=== PATIENT | male | born 1935 | race Caucasian/White ===

== ENCOUNTER → 2017-03-11 | Outpatient (CLI) | payer MEDICARE ==
[2017-03-11 09:34] LABS: ABSOLUTE EOSINOPHILS # (AUTO) 0.4 10^3/uL (0.0-0.6); ABSOLUTE LYMPHOCYTES (AUTO) 1.4 10^3/uL (0.5-4.7); ABSOLUTE MONOCYTES (AUTO) 0.9 10^3/uL (0.1-1.4); ABSOLUTE NEUT (AUTO) 4.2 10^3/uL (1.7-8.2); BASOPHILS % (AUTO) 0.6 % (0-2); EOSINOPHILS % (AUTO) 5.5 % (0-6); HEMATOCRIT 37.9 % (37.9-51.0); HEMOGLOBIN 12.7 g/dL (13.5-17.0); HGB HCT DIFFERENCE 0.2; LYMPHOCYTES % (AUTO) 20.6 % (13-45); MEAN CORPUSCULAR HEMOGLOBIN 32.5 pg (27.0-33.4); MEAN CORPUSCULAR HGB CONC 33.6 g/dL (32.0-36.0); MEAN CORPUSCULAR VOLUME 97 fl (80-97); RED BLOOD COUNT 3.92 10^6/uL (4.35-5.55); RED CELL DISTRIBUTION WIDTH 14.7 % (11.5-14.0); SEGMENTED NEUTROPHILS % (AUTO) 60.3 % (42-78)
[2017-03-11 09:54] LABS: ALANINE AMINOTRANSFERASE 35 U/L (21-72); ALBUMIN 4.3 g/dL (3.5-5.0); ALKALINE PHOSPHATASE 80 U/L (38-126); ANION GAP 11 (5-19); ASPARTATE AMINO TRANSFERASE 30 U/L (17-59); BILIRUBIN,DIRECT 0.3 mg/dL (0.0-0.4); BILIRUBIN,TOTAL 0.6 mg/dL (0.2-1.3); BLOOD UREA NITROGEN 19 mg/dL (7-20); CALCIUM 9.6 mg/dL (8.4-10.2); CARBON DIOXIDE 28 mmol/L (22-30); CHLORIDE 103 mmol/L (98-107); CHOLESTEROL 221.77 mg/dL (0-200); CREATININE RESULT 1.08 mg/dL (0.52-1.25); Direct HDL 88 mg/dL (>40); GLUCOSE 85 mg/dL (75-110); POTASSIUM 4.7 mmol/L (3.6-5.0); SODIUM 141.6 mmol/L (137-145); TOTAL PROTEIN 7.8 g/dL (6.3-8.2); TRIGLYCERIDES 55 mg/dL (<150)
[2017-03-11 10:05] LABS: DIRECT LDL 110 mg/dL (<100)
== END ==
LOC: OD 08:14
PROVIDERS: ATTEND Pediatrics
DX: E78.2 Mixed hyperlipidemia (principal)
CPT/HCPCS: 36415; 80053; 80061; 85025

== ENCOUNTER 2017-09-24 04:24 | Inpatient (IN) | payer MEDICARE, BC ==
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
[2017-09-24 05:32] LABS: ABSOLUTE EOSINOPHILS # (AUTO) 0.3 10^3/uL (0.0-0.6); ABSOLUTE MONOCYTES (AUTO) 1.1 10^3/uL (0.1-1.4); ABSOLUTE NEUT (AUTO) 4.9 10^3/uL (1.7-8.2); BASOPHILS % (AUTO) 0.6 % (0-2); EOSINOPHILS % (AUTO) 4.7 % (0-6); HEMOGLOBIN 9.4 g/dL (13.5-17.0); LYMPHOCYTES % (AUTO) 13.8 % (13-45); MEAN CORPUSCULAR HGB CONC 33.6 g/dL (32.0-36.0); MEAN CORPUSCULAR VOLUME 95 fl (80-97); MONOCYTES % (AUTO) 14.3 % (3-13); PLATELET COUNT 195 10^3/uL (150-450); RED BLOOD COUNT 2.95 10^6/uL (4.35-5.55); RED CELL DISTRIBUTION WIDTH 14.3 % (11.5-14.0); SEGMENTED NEUTROPHILS % (AUTO) 66.6 % (42-78); TOTAL CELLS COUNTED % (AUTO) 100 %; WHITE BLOOD COUNT 7.4 10^3/uL (4.0-10.5)
[2017-09-24 07:22] LABS: ALANINE AMINOTRANSFERASE 33 U/L (21-72); ALBUMIN 3.3 g/dL (3.5-5.0); ALKALINE PHOSPHATASE 75 U/L (38-126); ANION GAP 11 (5-19); ASPARTATE AMINO TRANSFERASE 32 U/L (17-59); BILIRUBIN,DIRECT 0.2 mg/dL (0.0-0.4); BILIRUBIN,TOTAL 0.6 mg/dL (0.2-1.3); BLOOD UREA NITROGEN 20 mg/dL (7-20); CALCIUM 8.9 mg/dL (8.4-10.2); CARBON DIOXIDE 28 mmol/L (22-30); CHLORIDE 98 mmol/L (98-107); GLUCOSE 98 mg/dL (75-110); POTASSIUM 4.5 mmol/L (3.6-5.0); SODIUM 136.6 mmol/L (137-145); TOTAL PROTEIN 6.4 g/dL (6.3-8.2)
--- NOTE | 2017-09-24 07:40 | EKG REPORT ---
SEVERITY:- NORMAL ECG - SINUS RHYTHM : Confirmed by: Robel Bennett MD 24-Sep-2017 07:39:12
[2017-09-24] MEDS ORDERED: TRAMADOL HCL 50 MG TABLET PO ONE (07:48)
--- NOTE | 2017-09-24 08:39 | ER Document Report ---
ED General - General Chief Complaint: Dizziness Stated Complaint: FALL/MULTIPLE INJURIES Time Seen by Provider: 09/24/17 04:54 Mode of Arrival: Stretcher Information source: Patient, Relative, Outside Facility Records Notes: 82-year-old male who fell one week ago and has bilateral humeral fractures in slings presents with complaints of swelling in his lower extremities generalized weakness. Patient flew here from [place] yesterday, is supposed to see Dr. Jordan for surgical intervention tomorrow. Patient notes pain is controlled with tramadol TRAVEL OUTSIDE OF THE [place] IN LAST 30 DAYS: No - HPI Onset: Last week Onset/Duration: Persistent Quality of pain: Achy Severity: Mild Pain Level: 1 Associated symptoms: Body/muscle aches Exacerbated by: Movement Relieved by: Denies Similar symptoms previously: Yes Recently seen / treated by doctor: Yes - Related Data Allergies/Adverse Reactions: Sulfa (Sulfonamide Antibiotics) Allergy (Verified 09/24/17 06:35) Past Medical History - Social History Smoking Status: Never Smoker Cigarette use (# per day): No Chew tobacco use (# tins/day): No Smoking Education Provided: No Family History: Reviewed & Not Pertinent Patient has suicidal ideation: No Patient has homicidal ideation: No - Past Medical History Cardiac Medical History: Reports: Hx Hypertension Renal/ Medical History: Denies: Hx Peritoneal Dialysis Review of Systems - Review of Systems Notes: REVIEW OF SYSTEMS: CONSTITUTIONAL : Denies fever, chills, or sweats. Denies recent illness. EENT: Denies eye, ear, throat, or mouth pain or symptoms. Denies nasal or sinus congestion or discharge. Denies throat, tongue, or mouth swelling or difficulty swallowing. CARDIOVASCULAR: Denies chest pain. Denies palpitations or racing or irregular heart beat. Denies ankle edema. RESPIRATORY: Denies cough, cold, or chest congestion. Denies shortness of breath, difficulty breathing, or wheezing. GASTROINTESTINAL: Denies abdominal pain or distention. Denies nausea, vomiting , or diarrhea. Denies blood in vomitus, stools, or per rectum. Denies black, tarry stools. Denies constipation. GENITOURINARY: Denies difficulty urinating, painful urination, burning, frequency, blood in urine, or discharge. MUSCULOSKELETAL: Bilateral upper extremity pain SKIN: Denies rash, lesions or sores. HEMATOLOGIC : Denies easy bruising or bleeding. LYMPHATIC: Denies swollen, enlarged glands. NEUROLOGICAL: Denies confusion or altered mental status. Denies passing out or loss of consciousness. Denies dizziness or lightheadedness. Denies headache. Denies weakness or paralysis or loss of use of either side. Denies problems with gait or speech. Denies sensory loss, numbness, or tingling. Denies seizures. PSYCHIATRIC: Denies anxiety or stress. Denies depression, suicidal ideation, or homicidal ideation. ALL OTHER SYSTEMS REVIEWED AND NEGATIVE. Dictation was performed using [employer] voice recognition software PHYSICAL EXAMINATION: GENERAL: Well-appearing, well-nourished and in no acute distress. HEAD: Atraumatic, normocephalic. EYES: Pupils equal round and reactive to light, extraocular movements intact, sclera anicteric, conjunctiva are normal. ENT: Nares patent, oropharynx clear without exudates. Moist mucous membranes. NECK: Normal range of motion, supple without lymphadenopathy LUNGS: Breath sounds clear to auscultation bilaterally and equal. No wheezes rales or rhonchi. HEART: Regular rate and rhythm without murmurs ABDOMEN: Soft, nontender, nondistended abdomen. No guarding, no rebound. No masses appreciated. Musculoskeletal: Bilateral upper extremities are in slings NEUROLOGICAL: Cranial nerves grossly intact. Normal speech, normal gait. Normal sensory, motor exams PSYCH: Normal mood, normal affect. SKIN: Warm, Dry, normal turgor, no rashes or lesions noted. Physical Exam - Vital signs Vitals: Temp Pulse Resp BP Pulse Ox 97.9 F 64 22 H 213/119 H 100 09/24/17 04:30 09/24/17 04:30 09/24/17 04:30 09/24/17 04:30 09/24/17 04:30 Course - Re-evaluation Re-evalutation: 09/24/17 14:42 Patient is able to move his hands has good sensation, his CT findings are consistent with bilateral comminuted humeral fractures, I did speak with on- call orthopedic surgeon and he is willing to take the patient to the operating room, I will admit the patient to the hospitalist service for pain management and further physical therapy and care - Vital Signs Vital signs: Temp Pulse Resp BP Pulse Ox 97.9 F 77 16 161/75 H 100 09/24/17 04:30 09/24/17 10:37 09/24/17 10:37 09/24/17 07:01 09/24/17 10:37 - Laboratory Result Diagrams: 09/24/17 05:19 09/24/17 06:47 Laboratory results interpreted by me: 09/24/17 09/24/17 05:19 06:47 RBC 2.95 L Hgb 9.4 L Hct 28.0 L RDW 14.3 H Monocytes % 14.3 H Sodium 136.6 L Albumin 3.3 L - Diagnostic Test Radiology reviewed: Image reviewed - Outside facility imaging reviewed notes bilateral comminuted humeral fractures, Reports reviewed Discharge - Discharge Clinical Impression: Bilateral humeral fractures Qualifiers: Encounter type: initial encounter Fracture type: closed Qualified Code(s): S42.301A - Unspecified fracture of shaft of humerus, right arm, initial encounter for closed fracture; S42.302A - Unspecified fracture of shaft of humerus, left arm, initial encounter for closed fracture; S42.302A - Unspecified fracture of shaft of humerus, left arm, initial encounter for closed fracture HTN (hypertension) Qualifiers: Hypertension type: essential hypertension Qualified Code(s): I10 - Essential ( primary) hypertension Condition: Stable Disposition: ADMITTED INPATIENT Admitting Provider: Hospitalist Unit Admitted: Medical Floor
[2017-09-24] MEDS ORDERED: MORPHINE SULFATE 10 MG/ML INJ IV ONE (09:51)
[2017-09-24] MEDS ORDERED: TEMAZEPAM 7.5 MG CAPSULE PO PRN (10:24)
[2017-09-24] MEDS ORDERED: ACETAMINOPHEN 325 MG TABLET PO PRN (10:24)
[2017-09-24] MEDS ORDERED: ALBUTEROL SULFATE 0.083% NEB 2.5 MG/3 ML AMPUL NEB PRN (10:24)
[2017-09-24] MEDS ORDERED: ONDANSETRON 4 MG TAB.RAPDIS PO PRN (10:24)
[2017-09-24] MEDS ORDERED: ONDANSETRON HCL INJ/PF 4 MG/2 ML SDV IV PRN (10:24)
--- NOTE | 2017-09-24 10:55 | PDOC H&P ---
History of Present Illness Admission Date/PCP: 09/24/17 10:29 JOSH RODAS DO Patient complains of: Swelling of legs, bilateral arm pain History of Present Illness: The patient is an 82-year-old gentleman with past medical history of hypertension. He was in [place] last week and fell while getting out of bed in a hurry and hit his head to the floor. He was taken to the ER there and CT of the head did not show intracranial hemorrhage or skull fracture. He was found to have bilateral nasal bone and anterior maxillary nasal spine fractures Cervical spine CT showed no fracture or dislocation No rib fracture seen He was found to have bilateral humerus fractures. Over the past few days he has had progressively worsening bilateral lower extremity edema and difficulty with bilateral arm and shoulder pain. He has an appointment to see Dr. Jordan on Monday managing at home with his pain and swelling. Healthcare power of interior mechanic is his daughter. He would like to be a Full code. Outpatient medications: Metoprolol XL 50 mg twice a day Amlodipine 5 mg daily Telmisartan 80 mg daily Tramadol 37.5 mg every 6 hours as needed Past Medical History Cardiac Medical History: Reports: Hypertension Social History Information Source: Patient Lives with: Family Smoking Status: Never Smoker Frequency of Alcohol Use: None Hx Recreational Drug Use: No - Advance Directive Resuscitation Status: Full Code Family History Family History: Hypertension Parental Family History Reviewed: Yes Children Family History Reviewed: Yes Sibling(s) Family History Reviewed.: Yes Medication/Allergy Home Medications: Amlodipine Besylate [Amlodipine Besylate] 5 mg PO DAILY 09/24/17 Metoprolol Succinate [Toprol Xl 50 mg Tab.sr] 50 mg PO BID 09/24/17 Telmisartan [Telmisartan] 80 mg PO DAILY 09/24/17 Allergies/Adverse Reactions: Sulfa (Sulfonamide Antibiotics) Allergy (Verified 09/24/17 06:35) Review of Systems Constitutional: ABSENT: fever(s) Eyes: ABSENT: visual disturbances Ears: ABSENT: hearing changes Nose, Mouth, and Throat: ABSENT: sore throat Cardiovascular: PRESENT: edema. ABSENT: chest pain Respiratory: ABSENT: cough Gastrointestinal: ABSENT: abdominal pain, diarrhea Genitourinary: ABSENT: dysuria Musculoskeletal: PRESENT: joint swelling Neurological: ABSENT: focal weakness Psychiatric: ABSENT: hallucinations Endocrine: ABSENT: heat intolerance Hematologic/Lymphatic: ABSENT: easy bleeding Allergic/Immunologic: ABSENT: seasonal rhinorrhea Physical Exam Vital Signs: Temp Pulse Resp BP Pulse Ox 97.9 F 80 21 H 161/75 H 100 09/24/17 04:30 09/24/17 05:00 09/24/17 07:01 09/24/17 07:01 09/24/17 07:01 General appearance: PRESENT: no acute distress Head exam: PRESENT: normocephalic Eye exam: PRESENT: PERRLA Ear exam: PRESENT: normal external ear exam Mouth exam: PRESENT: moist Teeth exam: PRESENT: poor dentation Neck exam: ABSENT: tracheal deviation Respiratory exam: PRESENT: symmetrical, unlabored. ABSENT: wheezes Cardiovascular exam: PRESENT: RRR GI/Abdominal exam: PRESENT: normal bowel sounds, soft. ABSENT: tenderness Rectal exam: PRESENT: deferred Extremities exam: PRESENT: pedal edema, other - Bilatearl arm tenderness and swelling Neurological exam: PRESENT: alert, awake, oriented to person, oriented to place , oriented to time, oriented to situation Psychiatric exam: PRESENT: appropriate affect Skin exam: ABSENT: rash Assessment & Plan - Diagnosis (1) Pedal edema Is this a current diagnosis for this admission?: Yes Plan: Check venous dopplers, BNP, Echo (2) Bilateral humeral fractures Is this a current diagnosis for this admission?: Yes Plan: management per Orthopedic service pain control (3) HTN (hypertension) Is this a current diagnosis for this admission?: Yes Plan: Monitor BP, restart outpatient meds as indicated. - Time Time Spent: Greater than 70 Minutes - Inpatient Certification Medical Necessity: Need for Surgery, Risk of Complication if Not Cared For in Hospital
[2017-09-24] MEDS ORDERED: HYDROMORPHONE HCL INJ/PF 2 MG/ML AMPULE IV PRN (10:57)
[2017-09-24 11:25] LABS: PHOSPHORUS 3.3 mg/dL (2.5-4.5)
[2017-09-24] MEDS ORDERED: ENOXAPARIN SODIUM INJ 40 MG/0.4 ML DISP.SYRIN SUBCUT ONE (11:30)
--- NOTE | 2017-09-24 11:41 | RADIOLOGY REPORT (SQ) ---
EXAM DESCRIPTION: CHEST SINGLE VIEW COMPLETED DATE/TIME: 09/24/2017 11:28 am REASON FOR STUDY: Dyspnea COMPARISON: None. NUMBER OF VIEWS: One view. TECHNIQUE: Single frontal radiographic view of the chest acquired. LIMITATIONS: None. FINDINGS: LUNGS AND PLEURA: No opacities, masses or pneumothorax. No pleural effusion. Attenuated bl ood vessels and flattened marco a-diaphragms. MEDIASTINUM AND HILAR STRUCTURES: No masses. Contour normal. HEART AND VASCULAR STRUCTURES: Heart normal in size. Normal vasculature. BONES: No acute findings. HARDWARE: None in the chest. OTHER: No other significant finding. IMPRESSION: COPD. NO ACUTE RADIOGRAPHIC FINDING IN THE CHEST. TECHNICAL DOCUMENTATION: JOB ID: [id number] [employer]- All Rights Reserved Reading location - IP/workstation name: [email or web address]
[2017-09-24] MEDS ORDERED: METOPROLOL SUCCINATE 50 MG TAB.SR.24H PO ONE (12:00)
[2017-09-24] MEDS ORDERED: AMLODIPINE BESYLATE 5 MG TABLET PO ONE ×2 (12:00→18:00)
[2017-09-24] MEDS ORDERED: DOCUSATE SODIUM 100 MG CAPSULE PO ONE (12:00)
[2017-09-24] MEDS: DOCUSATE SODIUM 100 MG CAPSULE PO SCH (16:49)
[2017-09-24] MEDS: TRAMADOL HCL 50 MG TABLET PO PRN (16:52)
--- NOTE | 2017-09-24 17:10 | XCELERA REPORT ---
[address] [address] Lower Extremity Venous Evaluation Name: ARNEL GOINS Age: 82 yrs Gender: Male : 1935 Patient Status: Inpatient Patient Location: [place] [id number] Study Date: 09/24/2017 09:58 AM Procedure: Color flow and duplex imaging bilaterally of the veins of the lower extremities as well as the Common Femoral veins. Reason For Study: leg swelling Ordering Physician: MIKE CORTES Performed By: Genesis Cope Right Sided Venous Evaluation Normal vessel filling wall to wall, compression and augmentation as well as Colour flow down to the infrageniculate veins. Left Sided Venous Evaluation Normal vessel filling wall to wall, compression and augmentation as well as Colour flow down to the infrageniculate veins. Interpretation Summary No duplex evidence of DVT or obstruction in the bilateral lower extremities. : MIKE CORTES > Bill Hatfield
[2017-09-24] MEDS: METOPROLOL SUCCINATE 50 MG TAB.SR.24H PO SCH (17:23)
[2017-09-24] MEDS: FAMOTIDINE 20 MG TABLET PO SCH (22:17)
--- NOTE | 2017-09-24 23:07 | RADIOLOGY REPORT (SQ) ---
EXAM DESCRIPTION: SHOULDER BILAT 2 OR MORE VIEWS COMPLETED DATE/TIME: 09/24/2017 8:12 pm REASON FOR STUDY: Bilateral humerus fracture COMPARISON: None. NUMBER OF VIEWS: Six views. TECHNIQUE: Internal rotation, external rotation, and Y view images acquired of the right and left sh oulders. LIMITATIONS: None. FINDINGS: RIGHT SHOULDER: MINERALIZATION: Normal. BONES: There is a comminuted, displaced, impacted fracture at the right humeral head and neck. JOINTS: No dislocation. Degenerative changes at the acromioclavicular joint. VISUALIZED LUNGS AND RIBS: No pneumothorax. No rib fracture. SOFT TISSUES: No radiopaque foreign body. LEFT SHOULDER: MINERALIZATION: Normal. BONES: There is a comminuted, displaced fracture at the left humeral head and neck. JOINTS: There is inferior subluxation of the proximal humerus. Degenerative changes at the acromiocla vicular joint. VISUALIZED LUNGS AND RIBS: No pneumothorax. No rib fracture. SOFT TISSUES: No radiopaque foreign body. IMPRESSION: 1. Comminuted, displaced, impacted fracture at the proximal right humerus. 2. Comminuted, displaced, impacted fracture of the proximal left humerus with inferior subluxation. 3. Degenerative changes at the bilateral AC joints. TECHNICAL DOCUMENTATION: JOB ID: [id number] [employer]- All Rights Reserved Reading location - IP/workstation name: [email or web address]
[2017-09-25 06:13] LABS: ABSOLUTE EOSINOPHILS # (AUTO) 0.3 10^3/uL (0.0-0.6); ABSOLUTE LYMPHOCYTES (AUTO) 0.9 10^3/uL (0.5-4.7); ABSOLUTE NEUT (AUTO) 5.9 10^3/uL (1.7-8.2); BASOPHILS % (AUTO) 0.6 % (0-2); EOSINOPHILS % (AUTO) 4.3 % (0-6); HEMATOCRIT 29.9 % (37.9-51.0); MEAN CORPUSCULAR HEMOGLOBIN 31.6 pg (27.0-33.4); MEAN CORPUSCULAR HGB CONC 33.4 g/dL (32.0-36.0); MEAN CORPUSCULAR VOLUME 95 fl (80-97); MONOCYTES % (AUTO) 12.4 % (3-13); RED BLOOD COUNT 3.16 10^6/uL (4.35-5.55); RED CELL DISTRIBUTION WIDTH 14.1 % (11.5-14.0); SEGMENTED NEUTROPHILS % (AUTO) 71.7 % (42-78); TOTAL CELLS COUNTED % (AUTO) 100 %; WHITE BLOOD COUNT 8.2 10^3/uL (4.0-10.5)
[2017-09-25 06:37] LABS: PLATELET COUNT 230 10^3/uL (150-450)
--- NOTE | 2017-09-25 06:46 | PDOC CONSULTATION ---
Consultation Consult Date: 09/25/17 Consult reason:: Bilateral humerus fractures History of Present Illness Admission Date/PCP: 09/24/17 10:29 JOSH RODAS DO History of Present Illness: ARNEL GOINS is a 82 year old male a noncontributory past medical history who fell last week and sustained bilateral shoulder injuries. He was evaluated and found to have bilateral proximal humerus fractures. He returned from [place] and presents to the emergency room for further evaluation and therapy. He had tentatively been scheduled to be seen by Dr. comer as an outpatient in the [facility] for surgery this morning. Past Medical History Cardiac Medical History: Reports: Hypertension Pulmonary Medical History: Denies: None, Asthma, Bronchitis, Chronic Obstructive Pulmonary Disease (COPD ), Intubation, Pneumonia, Respiratory Failure, Sleep Apnea, Tuberculosis, Other Endocrine Medical History: Denies: None, Diabetes Mellitus Type 1, Diabetes Mellitus Type 2, Gestational Diabetes, Hyperthyroidism, Hypothyroidism, Obesity, Other Past Surgical History Past Surgical History: Denies: None, Appendectomy, Cardiac Catheterization, Carotid Endarterectomy, Cholecystectomy, Colostomy, Coronary Artery Bypass Graft, Coronary Stent, Gastric Bypass Surgery, Herniorrhaphy, Hip Replacement, Ileostomy, Internal Defibrillator, Knee Replacement, Orthopedic Surgery, Pacemaker, Renal Transplant , Splenectomy, Thyroidectomy, Tonsillectomy, Valve Replacement, Vascular Surgery , Other Social History Information Source: Patient, Legal Guardian, [facility] Records Lives with: Family Smoking Status: Former Smoker Cigarettes Packs Per Day: 0.5 Cigars Per Day: 0 Pipes Per Day: 0 Number of Years Smokin Last Time Smoked: 05/15/1969 Frequency of Alcohol Use: None Hx Recreational Drug Use: No Hx Prescription Drug Abuse: No - Advance Directive Resuscitation Status: Full Code Family History Family History: Reviewed & Not Pertinent Parental Family History Reviewed: No Children Family History Reviewed: No Sibling(s) Family History Reviewed.: No Medication/Allergy Home Medications: Amlodipine Besylate [Amlodipine Besylate] 5 mg PO DAILY 09/24/17 Metoprolol Succinate [Toprol Xl 50 mg Tab.sr] 50 mg PO Q12 09/24/17 Telmisartan [Telmisartan] 80 mg PO DAILY 09/24/17 Allergies/Adverse Reactions: Sulfa (Sulfonamide Antibiotics) Allergy (Verified 09/24/17 06:35) Review of Systems All systems: as per PMH Physical Exam Vital Signs: Temp Pulse Resp BP Pulse Ox 36.8 C 65 17 139/76 H 100 09/24/17 23:53 09/25/17 02:00 09/24/17 23:53 09/24/17 23:53 09/24/17 23:53 Intake & Output 09/23/17 09/24/17 09/25/17 06:59 06:59 06:59 Intake Total 467 Balance 467 Weight 69.9 kg Physical Exam: The patient is a tall thin elderly white male appearing younger than his stated age. Apparently he has self-contained discontinued the use of bilateral upper extremity slings that he presented to the emergency room with. General appearance: PRESENT: no acute distress, mild distress Head exam: PRESENT: normocephalic Respiratory exam: PRESENT: unlabored Cardiovascular exam: PRESENT: RRR Pulses: PRESENT: normal radial pulses, +1 pedal pulses bilateral Vascular exam: PRESENT: normal capillary refill GI/Abdominal exam: PRESENT: soft Rectal exam: PRESENT: deferred Extremities exam: PRESENT: other - Patient has difficulty abducting and extending either upper extremity. He has tenderness to palpation over the shoulder girdle bilaterally. Skin is intact. Distal neurovascular examination is intact. Neurological exam: PRESENT: alert, awake, oriented to person, oriented to place , oriented to time, oriented to situation. ABSENT: motor sensory deficit Psychiatric exam: PRESENT: appropriate affect, normal mood. ABSENT: homicidal ideation, suicidal ideation Skin exam: PRESENT: dry, intact, warm. ABSENT: cyanosis, rash Results Laboratory Results: 09/25/17 04:39 09/25/17 04:39 WBC 8.2 RBC 3.16 L Hgb 10.0 L Hct 29.9 L MCV 95 MCH 31.6 MCHC 33.4 RDW 14.1 H Plt Count 230 Seg Neutrophils % 71.7 Lymphocytes % 11.0 L Monocytes % 12.4 Eosinophils % 4.3 Basophils % 0.6 Absolute Neutrophils 5.9 Absolute Lymphocytes 0.9 Absolute Monocytes 1.0 Absolute Eosinophils 0.3 Absolute Basophils 0.0 09/25/17 04:39 NT-Pro-B Natriuret Pep 408 Impressions: Chest X-Ray 09/24/17 00:00 IMPRESSION: COPD. NO ACUTE RADIOGRAPHIC FINDING IN THE CHEST. Shoulder X-Ray 09/24/17 00:00 IMPRESSION: 1. Comminuted, displaced, impacted fracture at the proximal right humerus. 2. Comminuted, displaced, impacted fracture of the proximal left humerus with inferior subluxation. 3. Degenerative changes at the bilateral AC joints. Status: Imported from PACS Assessment & Plan - Diagnosis (1) Bilateral humeral fractures Qualifiers: Encounter type: initial encounter Fracture type: closed Qualified Code(s) : S42.301A - Unspecified fracture of shaft of humerus, right arm, initial encounter for closed fracture; S42.302A - Unspecified fracture of shaft of humerus, left arm, initial encounter for closed fracture; S42.302A - Unspecified fracture of shaft of humerus, left arm, initial encounter for closed fracture Is this a current diagnosis for this admission?: Yes Plan: 82-year-old white male with bilateral proximal humerus fractures and the associated functional disability that comes with this. Patient is really unable to care for himself and is admitted to the hospital largely for social reasons. During the hospitalization his bilateral humerus fractures will be assessed and treated by Dr. slater. - Time Time Spent: 50 to 70 Minutes Anticipated discharge: Home with Homehealth Within: Other
[2017-09-25] MEDS ORDERED: VALSARTAN 40 MG TABLET PO SCH (08:00)
[2017-09-25] MEDS ORDERED: (PENDING PHARMACY ID) (Telmisartan [Telmisartan] 80 MG) PO SCH (08:00)
[2017-09-25] MEDS: TELMISARTAN PO SCH (08:31)
[2017-09-25 08:42] LABS: ANION GAP 11 (5-19); BLOOD UREA NITROGEN 18 mg/dL (7-20); CALCIUM 9.3 mg/dL (8.4-10.2); CARBON DIOXIDE 28 mmol/L (22-30); CHLORIDE 96 mmol/L (98-107); GLUCOSE 127 mg/dL (75-110); PHOSPHORUS 3.3 mg/dL (2.5-4.5); POTASSIUM 4.8 mmol/L (3.6-5.0); SODIUM 134.6 mmol/L (137-145)
[2017-09-25] MEDS: TRAMADOL HCL 50 MG TABLET PO PRN ×3 (09:09→22:11)
[2017-09-25] MEDS: METOPROLOL SUCCINATE 50 MG TAB.SR.24H PO SCH ×2 (09:09→20:10)
[2017-09-25] MEDS: FAMOTIDINE 20 MG TABLET PO SCH ×2 (11:37→21:28)
[2017-09-25] MEDS: DOCUSATE SODIUM 100 MG CAPSULE PO SCH ×2 (11:37→18:11)
[2017-09-25] MEDS: ENOXAPARIN SODIUM INJ 40 MG/0.4 ML DISP.SYRIN SUBCUT SCH (11:38)
--- NOTE | 2017-09-25 13:10 | PDOC PROGRESS REPORT ---
Subjective Progress Note for:: 09/25/17 Subjective:: Doing well, no complaints. Will need SNF for rehab. Reason For Visit: B/L HUMERUS FRACTURES,EDEMA Physical Exam Vital Signs: Temp Pulse Resp BP Pulse Ox 97.8 F 65 18 149/78 H 100 09/25/17 08:17 09/25/17 12:25 09/25/17 10:37 09/25/17 08:17 09/25/17 10:37 Intake & Output 09/24/17 09/25/17 09/26/17 06:59 06:59 06:59 Intake Total 467 Balance 467 Weight 69.9 kg General appearance: PRESENT: no acute distress Head exam: PRESENT: normocephalic Eye exam: ABSENT: scleral icterus Ear exam: PRESENT: normal external ear exam Mouth exam: PRESENT: moist Neck exam: ABSENT: tracheal deviation Respiratory exam: PRESENT: symmetrical, unlabored. ABSENT: crackles Cardiovascular exam: PRESENT: RRR GI/Abdominal exam: PRESENT: normal bowel sounds, soft. ABSENT: tenderness Extremities exam: PRESENT: pedal edema Neurological exam: PRESENT: alert, awake, oriented to person, oriented to place Psychiatric exam: PRESENT: appropriate affect Results Laboratory Results: 09/25/17 04:39 09/25/17 07:57 09/25/17 09/25/17 09/25/17 04:39 07:57 07:57 WBC 8.2 RBC 3.16 L Hgb 10.0 L Hct 29.9 L MCV 95 MCH 31.6 MCHC 33.4 RDW 14.1 H Plt Count 230 Seg Neutrophils % 71.7 Lymphocytes % 11.0 L Monocytes % 12.4 Eosinophils % 4.3 Basophils % 0.6 Absolute Neutrophils 5.9 Absolute Lymphocytes 0.9 Absolute Monocytes 1.0 Absolute Eosinophils 0.3 Absolute Basophils 0.0 Sodium 134.6 L Potassium 4.8 Chloride 96 L Carbon Dioxide 28 Anion Gap 11 BUN 18 Creatinine 0.80 Est GFR ( Amer) > 60 Est GFR (Non-Af Amer) > 60 Glucose 127 H Calcium 9.3 Phosphorus 3.3 Magnesium 2.1 TSH 0.86 09/25/17 04:39 NT-Pro-B Natriuret Pep 408 Impressions: Chest X-Ray 09/24/17 00:00 IMPRESSION: COPD. NO ACUTE RADIOGRAPHIC FINDING IN THE CHEST. Shoulder X-Ray 09/24/17 00:00 IMPRESSION: 1. Comminuted, displaced, impacted fracture at the proximal right humerus. 2. Comminuted, displaced, impacted fracture of the proximal left humerus with inferior subluxation. 3. Degenerative changes at the bilateral AC joints. Assessment & Plan - Diagnosis (1) Pedal edema Is this a current diagnosis for this admission?: Yes Plan: Check Echo Venous dopplers negative for DVT in the lower extremities. (2) Bilateral humeral fractures Qualifiers: Encounter type: initial encounter Fracture type: closed Qualified Code(s) : S42.301A - Unspecified fracture of shaft of humerus, right arm, initial encounter for closed fracture; S42.302A - Unspecified fracture of shaft of humerus, left arm, initial encounter for closed fracture; S42.302A - Unspecified fracture of shaft of humerus, left arm, initial encounter for closed fracture Is this a current diagnosis for this admission?: Yes Plan: management per Orthopedic service Pain control (3) HTN (hypertension) Qualifiers: Hypertension type: essential hypertension Qualified Code(s): I10 - Essential (primary) hypertension Is this a current diagnosis for this admission?: Yes Plan: Coutpatient medications. - Time Time Spent with patient: 25-34 minutes
[2017-09-25] MEDS ORDERED: ONDANSETRON HCL INJ/PF 4 MG/2 ML SDV IV PRN (15:00)
[2017-09-25] MEDS ORDERED: ONDANSETRON 4 MG TAB.RAPDIS PO PRN (15:00)
--- NOTE | 2017-09-25 15:23 | PDOC PROGRESS REPORT ---
Subjective Progress Note for:: 09/25/17 Subjective:: Patient sitting at bedside comfortable. Pain controlled but notes worse w/ motion. Denies numbness. C/o swelling Reason For Visit: B/L HUMERUS FRACTURES,EDEMA Physical Exam Vital Signs: Temp Pulse Resp BP Pulse Ox 97.3 F 65 18 154/77 H 100 09/25/17 11:51 09/25/17 12:25 09/25/17 11:51 09/25/17 11:51 09/25/17 11:51 Intake & Output 09/24/17 09/25/17 09/26/17 06:59 06:59 06:59 Intake Total 467 Balance 467 Weight 69.9 kg Musculoskeletal exam: PRESENT: other - B/L Shoulder: swelling along the UE w/ ecchymosis bilaterally. No gross deformity. intact elbow/wrist/hand ROM. No sensory deficits. Appropriate TTP Results Laboratory Results: 09/25/17 04:39 09/25/17 07:57 09/25/17 09/25/17 09/25/17 04:39 07:57 07:57 WBC 8.2 RBC 3.16 L Hgb 10.0 L Hct 29.9 L MCV 95 MCH 31.6 MCHC 33.4 RDW 14.1 H Plt Count 230 Seg Neutrophils % 71.7 Lymphocytes % 11.0 L Monocytes % 12.4 Eosinophils % 4.3 Basophils % 0.6 Absolute Neutrophils 5.9 Absolute Lymphocytes 0.9 Absolute Monocytes 1.0 Absolute Eosinophils 0.3 Absolute Basophils 0.0 Sodium 134.6 L Potassium 4.8 Chloride 96 L Carbon Dioxide 28 Anion Gap 11 BUN 18 Creatinine 0.80 Est GFR ( Amer) > 60 Est GFR (Non-Af Amer) > 60 Glucose 127 H Calcium 9.3 Phosphorus 3.3 Magnesium 2.1 TSH 0.86 09/25/17 04:39 NT-Pro-B Natriuret Pep 408 Impressions: Chest X-Ray 09/24/17 00:00 IMPRESSION: COPD. NO ACUTE RADIOGRAPHIC FINDING IN THE CHEST. Shoulder X-Ray 09/24/17 00:00 IMPRESSION: 1. Comminuted, displaced, impacted fracture at the proximal right humerus. 2. Comminuted, displaced, impacted fracture of the proximal left humerus with inferior subluxation. 3. Degenerative changes at the bilateral AC joints. Status: Image reviewed by me - Xray demonstrate bilateral 4-part comminuted proximal humerus fracture Assessment & Plan - Diagnosis (1) Proximal humerus fracture Qualifiers: Encounter type: subsequent encounter Fracture type: closed Laterality: left Fracture healing: with routine healing Is this a current diagnosis for this admission?: Yes Plan: I have reviewed outside CT, radiographs and have compared them . At this point there is improvement in alignment specifically on the left w/ gravity. We have reviewed options including operative vs. nonoperative. Expectations of each have been discussed including poor mobility, nonunion, posttraumatic arthritis. Given the improved alignment and patients age decision was made to continue nonoperative management but if there is evidence of collapse I will strongly recommend operative treatment. Discussed above details w/ patient and family all questions answered and current treatment plan agreed upon. Patient will FU w/ me in 7days for recheck. (2) Proximal humeral fracture Qualifiers: Encounter type: subsequent encounter Fracture type: closed Laterality: right Is this a current diagnosis for this admission?: Yes
[2017-09-25] MEDS ORDERED: AMLODIPINE BESYLATE 5 MG TABLET PO SCH ×2 (18:00→20:00)
--- NOTE | 2017-09-25 21:41 | XCELERA REPORT ---
[address] [address] Transthoracic Echocardiogram Report Name: ARNEL GOINS Age: 82 yrs Gender: Male : 1935 Patient Status: Inpatient Patient Location: [address] [place] [address] Study Date: 09/25/2017 02:49 PM Procedure: A complete two-dimensional transthoracic echocardiogram was performed (2D, M-mode, spectral and color flow Doppler). The study was technically difficult with many images being suboptimal in quality. Reason For Study: Edema, LV function Ordering Physician: DARYA DIA Performed By: Jazmine Cox Interpretation Summary Left ventricular systolic function is low normal. Doppler measurements suggest pseudonormalized left ventricular relaxation, which is associated with grade II/IV or mild to moderate diastolic dysfunction There is borderline concentric left ventricular hypertrophy. The left ventricle is grossly normal size. Regional wall motion abnormalities cannot be excluded due to limited visualization. The right ventricle is mildly dilated. Right ventricular function cannot be assessed due to poor image quality. Borderline right atrial enlargement. The left atrium is borderline dilated. There is no mitral valve stenosis. There is a mild amount of mitral regurgitation There is no aortic valve stenosis No aortic regurgitation is present. There is no tricuspid stenosis. There is a trace amount of tricuspid regurgitation Tricuspid regurgitation jet envelope not well defined to measure RV systolic pressure accurately. The aortic root is not well visualized but is probably normal size. There is no pericardial effusion. Doppler Measurements & Calculations MV E max yaneth: MV P1/2t max yaneth: Ao V2 max: LV V1 max P.7 cm/sec 78.2 cm/sec 127.6 cm/sec 6.5 mmHg MV A max yaneth: MV P1/2t: 56.9 msec Ao max PG: LV V1 max: 74.5 cm/sec MVA(P1/2t): 3.9 cm2 6.5 mmHg 127.1 cm/sec MV E/A: 1.1 MV dec slope: 402.1 cm/sec2 MV dec time: 0.19 sec Left Ventricle The left ventricle is grossly normal size. There is borderline concentric left ventricular hypertrophy. Left ventricular systolic function is low normal. Doppler measurements suggest pseudonormalized left ventricular relaxation, which is associated with grade II/IV or mild to moderate diastolic dysfunction. Regional wall motion abnormalities cannot be excluded due to limited visualization. Right Ventricle The right ventricle is mildly dilated. Right ventricular function cannot be assessed due to poor image quality. Atria Borderline right atrial enlargement. The left atrium is borderline dilated. Interarterial septum not well visualized and not well dopplered. Cannot comment on ASD/PFO presence. Mitral Valve The mitral valve leaflets are sclerotic, but show no functional abnormalities. There is no mitral valve stenosis. There is a mild amount of mitral regurgitation. Aortic Valve The aortic valve is not well visualized secondary to technical limitations. There is no aortic valve stenosis. No aortic regurgitation is present. Tricuspid Valve The tricuspid valve is not well visualized secondary to technical limitations. There is no tricuspid stenosis. There is a trace amount of tricuspid regurgitation. Tricuspid regurgitation jet envelope not well defined to measure RV systolic pressure accurately. Pulmonic Valve The pulmonic valve is not well visualized. Great Vessels The aortic root is not well visualized but is probably normal size. The inferior vena cava was not visualized. Effusions There is no pericardial effusion. : DARYA DIA > Radha Crockett
[2017-09-26] MEDS ORDERED: AMLODIPINE BESYLATE 5 MG TABLET PO SCH (08:00)
[2017-09-26] MEDS: METOPROLOL SUCCINATE 50 MG TAB.SR.24H PO SCH ×2 (08:26→20:34)
[2017-09-26] MEDS: TELMISARTAN PO SCH (08:26)
--- NOTE | 2017-09-26 10:04 | PDOC PROGRESS REPORT ---
Subjective Progress Note for:: 09/26/17 Subjective:: Patient sitting at bedside chair. States his pain is significantly improved over the past 48 hours. Still has occasional spasms but has slowly begun feeding himself with his right arm. Reason For Visit: B/L HUMERUS FRACTURES,EDEMA Physical Exam Vital Signs: Temp Pulse Resp BP Pulse Ox 98.2 F 65 18 129/69 H 94 09/26/17 08:00 09/26/17 08:00 09/26/17 08:00 09/26/17 08:00 09/26/17 08:00 Intake & Output 09/25/17 09/26/17 09/27/17 06:59 06:59 06:59 Intake Total 467 982 Balance 467 982 Weight 69.9 kg 69.9 kg Musculoskeletal exam: PRESENT: other - Bilateral shoulders: Swelling and ecchymosis on the proximal aspect. No evidence of deformity. Swelling along the forearms bilaterally left greater than right notably improved. Full elbow, wrist and hand range of motion. Patient able to lift right hand to his mouth. No sensory deficits. Results Laboratory Results: 09/25/17 04:39 09/25/17 07:57 09/25/17 07:57 TSH 0.86 09/25/17 04:39 NT-Pro-B Natriuret Pep 408 Impressions: Chest X-Ray 09/24/17 00:00 IMPRESSION: COPD. NO ACUTE RADIOGRAPHIC FINDING IN THE CHEST. Shoulder X-Ray 09/24/17 00:00 IMPRESSION: 1. Comminuted, displaced, impacted fracture at the proximal right humerus. 2. Comminuted, displaced, impacted fracture of the proximal left humerus with inferior subluxation. 3. Degenerative changes at the bilateral AC joints. Assessment & Plan - Diagnosis (1) Proximal humerus fracture Qualifiers: Encounter type: subsequent encounter Fracture type: closed Laterality: left Fracture healing: with routine healing Is this a current diagnosis for this admission?: Yes Plan: Once again given the improved alignment compared to previous radiographs we will continue conservative management however if there is evidence of collapse when I repeat radiographs in 7 days we will consider possibility of operative intervention. In the meantime patient is to maintain nonweightbearing in his bilateral upper extremities may begin gentle range of motion of the right upper extremity and attempts to feed himself. We will continue to follow throughout the week. (2) Proximal humeral fracture Qualifiers: Encounter type: subsequent encounter Fracture type: closed Laterality: right Is this a current diagnosis for this admission?: Yes
[2017-09-26] MEDS: ENOXAPARIN SODIUM INJ 40 MG/0.4 ML DISP.SYRIN SUBCUT SCH (10:07)
[2017-09-26] MEDS: DOCUSATE SODIUM 100 MG CAPSULE PO SCH ×2 (10:07→18:31)
[2017-09-26] MEDS: FAMOTIDINE 20 MG TABLET PO SCH ×2 (10:07→21:36)
[2017-09-26] MEDS: TRAMADOL HCL 50 MG TABLET PO PRN ×2 (12:20→20:55)
[2017-09-26] MEDS ORDERED: FUROSEMIDE 20 MG TABLET PO ONE (15:00)
--- NOTE | 2017-09-26 15:02 | PDOC PROGRESS REPORT ---
Subjective Progress Note for:: 09/26/17 Subjective:: Patient states the pain in his upper extremities is less Still complaining of mild swelling of his legs No chest pain no shortness of breath No fever no chills Reason For Visit: B/L HUMERUS FRACTURES,EDEMA Physical Exam Vital Signs: Temp Pulse Resp BP Pulse Ox 97.8 F 67 18 133/94 H 100 09/26/17 12:00 09/26/17 12:00 09/26/17 12:00 09/26/17 12:00 09/26/17 12:00 Intake & Output 09/25/17 09/26/17 09/27/17 00:59 00:59 00:59 Intake Total 462 975 12 Balance 462 975 12 Weight 69.9 kg 69.9 kg General appearance: PRESENT: no acute distress Head exam: PRESENT: normocephalic Eye exam: ABSENT: scleral icterus Ear exam: PRESENT: normal external ear exam Mouth exam: PRESENT: moist Neck exam: ABSENT: tracheal deviation Respiratory exam: PRESENT: symmetrical, unlabored. ABSENT: crackles Cardiovascular exam: PRESENT: RRR GI/Abdominal exam: PRESENT: normal bowel sounds, soft. ABSENT: tenderness Extremities exam: PRESENT: pedal edema Upper extremities 1+ 2+ edema bilaterally Neurological exam: PRESENT: alert, awake, oriented to person, oriented to place Psychiatric exam: PRESENT: appropriate affect Results Laboratory Results: 09/25/17 04:39 09/25/17 07:57 09/25/17 04:39 NT-Pro-B Natriuret Pep 408 Impressions: Chest X-Ray 09/24/17 00:00 IMPRESSION: COPD. NO ACUTE RADIOGRAPHIC FINDING IN THE CHEST. Shoulder X-Ray 09/24/17 00:00 IMPRESSION: 1. Comminuted, displaced, impacted fracture at the proximal right humerus. 2. Comminuted, displaced, impacted fracture of the proximal left humerus with inferior subluxation. 3. Degenerative changes at the bilateral AC joints. Assessment & Plan - Diagnosis (1) Chronic combined systolic and diastolic CHF (congestive heart failure) Is this a current diagnosis for this admission?: Yes Plan: Echocardiogram performed showed low normal left ventricular function is grade 2/ 4 moderate diastolic dysfunction Patient is on metoprolol p.o. We will add small doses of Lasix and lisinopril We will obtain serial cardiac enzymes and fasting lipid profile Ecotrin 81 mg should be added to patient's medical regimen when orthopedic injuries permit (2) Bilateral humeral fractures Qualifiers: Encounter type: initial encounter Fracture type: closed Qualified Code(s) : S42.301A - Unspecified fracture of shaft of humerus, right arm, initial encounter for closed fracture; S42.302A - Unspecified fracture of shaft of humerus, left arm, initial encounter for closed fracture; S42.302A - Unspecified fracture of shaft of humerus, left arm, initial encounter for closed fracture Is this a current diagnosis for this admission?: Yes (3) HTN (hypertension) Qualifiers: Hypertension type: essential hypertension Qualified Code(s): I10 - Essential (primary) hypertension Is this a current diagnosis for this admission?: Yes Plan: Controlled Continue present management Initiated lisinopril p.o. - Time Time Spent with patient: Patient did qualify for an inpatient stay Is a candidate for SNF and short-term rehab Patient may be transferred when a bed is available Follow-up with Dr. Jordan on Monday in the office Time Spent with patient: 25-34 minutes
[2017-09-26 16:44] LABS: CREATINE KINASE MB 1.51 ng/mL (<4.55)
[2017-09-26 16:48] LABS: TROPONIN I < 0.012 ng/mL
[2017-09-26] MEDS: CYCLOBENZAPRINE HCL 10 MG TABLET PO SCH ×2 (18:34→21:36)
[2017-09-26 21:49] LABS: CREATINE KINASE MB 1.26 ng/mL (<4.55)
[2017-09-26 21:53] LABS: TROPONIN I < 0.012 ng/mL
[2017-09-27 03:41] LABS: ANION GAP 7 (5-19); BLOOD UREA NITROGEN 18 mg/dL (7-20); CARBON DIOXIDE 29 mmol/L (22-30); CHLORIDE 99 mmol/L (98-107); CHOLESTEROL 148.01 mg/dL (0-200); GLUCOSE 102 mg/dL (75-110); POTASSIUM 4.6 mmol/L (3.6-5.0); SODIUM 135.1 mmol/L (137-145); TRIGLYCERIDES 39 mg/dL (<150)
[2017-09-27 03:51] LABS: DIRECT LDL 67 mg/dL (<100)
[2017-09-27 03:52] LABS: CREATINE KINASE MB 1.08 ng/mL (<4.55)
[2017-09-27 03:58] LABS: TROPONIN I < 0.012 ng/mL
[2017-09-27] MEDS: CYCLOBENZAPRINE HCL 10 MG TABLET PO SCH ×2 (06:04→14:59)
[2017-09-27] MEDS: ENOXAPARIN SODIUM INJ 40 MG/0.4 ML DISP.SYRIN SUBCUT SCH (09:01)
[2017-09-27] MEDS: DOCUSATE SODIUM 100 MG CAPSULE PO SCH (09:01)
[2017-09-27] MEDS: METOPROLOL SUCCINATE 50 MG TAB.SR.24H PO SCH ×2 (09:03→20:12)
[2017-09-27] MEDS: TELMISARTAN PO SCH (09:03)
[2017-09-27] MEDS: FAMOTIDINE 20 MG TABLET PO SCH (09:05)
[2017-09-27] MEDS ORDERED: FUROSEMIDE 20 MG TABLET PO SCH (10:00)
[2017-09-27] MEDS ORDERED: LISINOPRIL 10 MG TABLET PO SCH (10:00)
[2017-09-27] MEDS ORDERED: TRAMADOL HCL 50 MG TABLET PO PRN (15:26)
--- NOTE | 2017-09-27 16:43 | PDOC PROGRESS REPORT ---
Subjective Progress Note for:: 09/27/17 Subjective:: Patient has minimal pain today Patient states he is extremely drowsy with medications and is requesting for pain medication to be discontinued as well as muscle relaxants Patient also does not wish to take lisinopril and wishes for Norvasc to be prescribed at dose he was taking at home He also requests that Lasix and Lovenox be discontinued He has no chest pain no shortness of breath minimal discomfort He is awaiting for a bed in rehab to be available Reason For Visit: B/L HUMERUS FRACTURES,EDEMA Physical Exam Vital Signs: Temp Pulse Resp BP Pulse Ox 98.7 F 70 16 121/78 100 09/26/17 16:00 09/27/17 14:00 09/26/17 16:00 09/26/17 16:00 09/26/17 16:00 Intake & Output 09/26/17 09/27/17 09/28/17 00:59 00:59 00:59 Intake Total 975 1752 12 Balance 975 1752 12 Weight 69.9 kg 69.9 kg 69.9 kg General appearance: PRESENT: no acute distress Head exam: PRESENT: normocephalic Eye exam: ABSENT: scleral icterus Ear exam: PRESENT: normal external ear exam Mouth exam: PRESENT: moist Neck exam: ABSENT: tracheal deviation Respiratory exam: PRESENT: symmetrical, unlabored. ABSENT: crackles Cardiovascular exam: PRESENT: RRR GI/Abdominal exam: PRESENT: normal bowel sounds, soft. ABSENT: tenderness Extremities exam: PRESENT: pedal edema Upper extremities 1+ 2+ edema bilaterally Neurological exam: PRESENT: alert, awake, oriented to person, oriented to place Psychiatric exam: PRESENT: appropriate affect Results Laboratory Results: 09/25/17 04:39 09/27/17 03:13 09/27/17 03:13 Sodium 135.1 L Potassium 4.6 Chloride 99 Carbon Dioxide 29 Anion Gap 7 BUN 18 Creatinine 0.81 Est GFR ( Amer) > 60 Est GFR (Non-Af Amer) > 60 Glucose 102 Calcium 9.0 Triglycerides 39 Cholesterol 148.01 LDL Cholesterol Direct 67 VLDL Cholesterol 8.0 L HDL Cholesterol 60 09/25/17 09/26/17 09/26/17 04:39 15:40 15:40 Creatine Kinase 113 CK-MB (CK-2) 1.51 Troponin I < 0.012 NT-Pro-B Natriuret Pep 408 05/15/18 05/15/18 05/16/18 21:07 21:07 03:13 Creatine Kinase 105 96 CK-MB (CK-2) 1.26 Troponin I < 0.012 NT-Pro-B Natriuret Pep 09/27/17 03:13 Creatine Kinase CK-MB (CK-2) 1.08 Troponin I < 0.012 NT-Pro-B Natriuret Pep Impressions: Chest X-Ray 09/24/17 00:00 IMPRESSION: COPD. NO ACUTE RADIOGRAPHIC FINDING IN THE CHEST. Shoulder X-Ray 09/24/17 00:00 IMPRESSION: 1. Comminuted, displaced, impacted fracture at the proximal right humerus. 2. Comminuted, displaced, impacted fracture of the proximal left humerus with inferior subluxation. 3. Degenerative changes at the bilateral AC joints. Assessment & Plan - Diagnosis (1) Chronic combined systolic and diastolic CHF (congestive heart failure) Is this a current diagnosis for this admission?: Yes (2) Bilateral humeral fractures Qualifiers: Encounter type: initial encounter Fracture type: closed Qualified Code(s) : S42.301A - Unspecified fracture of shaft of humerus, right arm, initial encounter for closed fracture; S42.302A - Unspecified fracture of shaft of humerus, left arm, initial encounter for closed fracture; S42.302A - Unspecified fracture of shaft of humerus, left arm, initial encounter for closed fracture Is this a current diagnosis for this admission?: Yes (3) HTN (hypertension) Qualifiers: Hypertension type: essential hypertension Qualified Code(s): I10 - Essential (primary) hypertension Is this a current diagnosis for this admission?: Yes - Time Time Spent with patient: Discontinued medications that patient did not want to take Continue previous management This discharge patient to short-term rehab when a bed is available Time Spent with patient: 25-34 minutes
[2017-09-27] MEDS ORDERED: AMLODIPINE BESYLATE 5 MG TABLET PO ONE (20:30)
[2017-09-27] MEDS: ACETAMINOPHEN 325 MG TABLET PO PRN (21:54)
[2017-09-28] MEDS ORDERED: AMLODIPINE BESYLATE 5 MG TABLET PO SCH (08:00)
[2017-09-28] MEDS: METOPROLOL SUCCINATE 50 MG TAB.SR.24H PO SCH ×2 (08:42→20:12)
[2017-09-28] MEDS: TELMISARTAN PO SCH (08:42)
[2017-09-28] MEDS: ACETAMINOPHEN 325 MG TABLET PO PRN ×2 (08:42→16:31)
--- NOTE | 2017-09-28 16:49 | PDOC PROGRESS REPORT ---
Subjective Progress Note for:: 09/28/17 Subjective:: 09/27 Patient has minimal pain today Patient states he is extremely drowsy with medications and is requesting for pain medication to be discontinued as well as muscle relaxants Patient also does not wish to take lisinopril and wishes for Norvasc to be prescribed at dose he was taking at home He also requests that Lasix and Lovenox be discontinued He has no chest pain no shortness of breath minimal discomfort He is awaiting for a bed in rehab to be available 09/28 doing very well no complaints Reason For Visit: B/L HUMERUS FRACTURES,EDEMA Physical Exam Vital Signs: Temp Pulse Resp BP Pulse Ox 97.5 F 69 13 112/58 L 100 09/28/17 12:00 09/28/17 12:00 09/28/17 12:00 09/28/17 12:00 09/28/17 12:00 Intake & Output 09/27/17 09/28/17 09/29/17 00:59 00:59 00:59 Intake Total 1752 1207 482 Balance 1752 1207 482 Weight 69.9 kg 69.9 kg 69.9 kg General appearance: PRESENT: no acute distress Head exam: PRESENT: normocephalic Eye exam: ABSENT: scleral icterus Ear exam: PRESENT: normal external ear exam Mouth exam: PRESENT: moist Neck exam: ABSENT: tracheal deviation Respiratory exam: PRESENT: symmetrical, unlabored. ABSENT: crackles Cardiovascular exam: PRESENT: RRR GI/Abdominal exam: PRESENT: normal bowel sounds, soft. ABSENT: tenderness Extremities exam: PRESENT: pedal edema Upper extremities 1+ 2+ edema bilaterally Neurological exam: PRESENT: alert, awake, oriented to person, oriented to place Psychiatric exam: PRESENT: appropriate affect Results Laboratory Results: 09/25/17 04:39 09/27/17 03:13 09/25/17 09/26/17 09/26/17 04:39 15:40 15:40 Creatine Kinase 113 CK-MB (CK-2) 1.51 Troponin I < 0.012 NT-Pro-B Natriuret Pep 408 09/26/17 09/26/17 09/27/17 21:07 21:07 03:13 Creatine Kinase 105 96 CK-MB (CK-2) 1.26 Troponin I < 0.012 NT-Pro-B Natriuret Pep 09/27/17 03:13 Creatine Kinase CK-MB (CK-2) 1.08 Troponin I < 0.012 NT-Pro-B Natriuret Pep Impressions: Chest X-Ray 09/24/17 00:00 IMPRESSION: COPD. NO ACUTE RADIOGRAPHIC FINDING IN THE CHEST. Shoulder X-Ray 09/24/17 00:00 IMPRESSION: 1. Comminuted, displaced, impacted fracture at the proximal right humerus. 2. Comminuted, displaced, impacted fracture of the proximal left humerus with inferior subluxation. 3. Degenerative changes at the bilateral AC joints. Assessment & Plan - Diagnosis (1) Chronic combined systolic and diastolic CHF (congestive heart failure) Is this a current diagnosis for this admission?: Yes (2) Bilateral humeral fractures Qualifiers: Encounter type: initial encounter Fracture type: closed Qualified Code(s) : S42.301A - Unspecified fracture of shaft of humerus, right arm, initial encounter for closed fracture; S42.302A - Unspecified fracture of shaft of humerus, left arm, initial encounter for closed fracture; S42.302A - Unspecified fracture of shaft of humerus, left arm, initial encounter for closed fracture Is this a current diagnosis for this admission?: Yes (3) HTN (hypertension) Qualifiers: Hypertension type: essential hypertension Qualified Code(s): I10 - Essential (primary) hypertension Is this a current diagnosis for this admission?: Yes - Time Time Spent with patient: will keep patient till monday repeat xray's shoulders on monday and orthopedic evaluation Time Spent with patient: 25-34 minutes
[2017-09-28] MEDS: AMLODIPINE BESYLATE 5 MG TABLET PO SCH (20:12)
[2017-09-29] MEDS: METOPROLOL SUCCINATE 50 MG TAB.SR.24H PO SCH ×2 (08:22→19:58)
[2017-09-29] MEDS: TELMISARTAN PO SCH (08:25)
[2017-09-29] MEDS: ACETAMINOPHEN 325 MG TABLET PO PRN ×3 (08:42→20:08)
--- NOTE | 2017-09-29 16:26 | PDOC PROGRESS REPORT ---
Subjective Progress Note for:: 09/29/17 Subjective:: Patient sitting at bedside chair. States his pain is significantly improved he has now been ambulating 120 feet along with using his right arm for feeding without significant limitation. Reason For Visit: B/L HUMERUS FRACTURES,EDEMA Physical Exam Vital Signs: Temp Pulse Resp BP Pulse Ox 97.7 F 78 16 113/52 L 99 09/29/17 10:00 09/29/17 10:00 09/29/17 10:00 09/29/17 10:00 09/29/17 10:00 Intake & Output 09/28/17 09/29/17 09/30/17 06:59 06:59 06:59 Intake Total 1207 480 Balance 1207 480 Weight 69.9 kg 71 kg Musculoskeletal exam: PRESENT: other - Right upper extremity: Residual swelling and ecchymosis but notably improved throughout the extremity. Full elbow wrist and hand range of motion. No sensory deficits. No gross deformity. Left upper extremity: Swelling and ecchymosis relatively unchanged throughout the upper arm into the forearm. Elbow range of motion 30-80. No sensory deficits. Patient able to make full composite fist Results Laboratory Results: 09/25/17 04:39 09/27/17 03:13 09/25/17 09/26/17 09/26/17 04:39 15:40 15:40 Creatine Kinase 113 CK-MB (CK-2) 1.51 Troponin I < 0.012 NT-Pro-B Natriuret Pep 408 09/26/17 09/26/17 09/27/17 21:07 21:07 03:13 Creatine Kinase 105 96 CK-MB (CK-2) 1.26 Troponin I < 0.012 NT-Pro-B Natriuret Pep 09/27/17 03:13 Creatine Kinase CK-MB (CK-2) 1.08 Troponin I < 0.012 NT-Pro-B Natriuret Pep Impressions: Chest X-Ray 09/24/17 00:00 IMPRESSION: COPD. NO ACUTE RADIOGRAPHIC FINDING IN THE CHEST. Shoulder X-Ray 09/24/17 00:00 IMPRESSION: 1. Comminuted, displaced, impacted fracture at the proximal right humerus. 2. Comminuted, displaced, impacted fracture of the proximal left humerus with inferior subluxation. 3. Degenerative changes at the bilateral AC joints. Assessment & Plan - Diagnosis (1) Proximal humerus fracture Qualifiers: Encounter type: subsequent encounter Fracture type: closed Laterality: left Fracture healing: with routine healing Is this a current diagnosis for this admission?: Yes Plan: Once again given the improved alignment compared to previous radiographs we will continue conservative management however if there is evidence of collapse when I repeat radiographs this monday and we will consider possibility of operative intervention. In the meantime patient is to maintain nonweightbearing in his bilateral upper extremities may begin gentle range of motion of the right upper extremity and attempts to feed himself. We will continue to follow throughout the week. (2) Proximal humeral fracture Qualifiers: Encounter type: subsequent encounter Fracture type: closed Laterality: right Is this a current diagnosis for this admission?: Yes
--- NOTE | 2017-09-29 17:06 | PDOC PROGRESS REPORT ---
Subjective Progress Note for:: 09/29/17 Subjective:: 09/27 Patient has minimal pain today Patient states he is extremely drowsy with medications and is requesting for pain medication to be discontinued as well as muscle relaxants Patient also does not wish to take lisinopril and wishes for Norvasc to be prescribed at dose he was taking at home He also requests that Lasix and Lovenox be discontinued He has no chest pain no shortness of breath minimal discomfort He is awaiting for a bed in rehab to be available 09/28 doing very well no complaints 09/29 clinically improved ambulating, using rt arm for repeat xray left shoulder in am Reason For Visit: B/L HUMERUS FRACTURES,EDEMA Physical Exam Vital Signs: Temp Pulse Resp BP Pulse Ox 98.1 F 75 17 120/65 100 09/29/17 16:00 09/29/17 16:00 09/29/17 16:00 09/29/17 16:00 09/29/17 16:00 Intake & Output 09/28/17 09/29/17 09/30/17 00:59 00:59 00:59 Intake Total 1207 492 Balance 1207 492 Weight 69.9 kg 69.9 kg 71 kg General appearance: PRESENT: no acute distress Head exam: PRESENT: normocephalic Eye exam: ABSENT: scleral icterus Ear exam: PRESENT: normal external ear exam Mouth exam: PRESENT: moist Neck exam: ABSENT: tracheal deviation Respiratory exam: PRESENT: symmetrical, unlabored. ABSENT: crackles Cardiovascular exam: PRESENT: RRR GI/Abdominal exam: PRESENT: normal bowel sounds, soft. ABSENT: tenderness Extremities exam: PRESENT: pedal edema Upper extremities 1+ 2+ edema bilaterally Neurological exam: PRESENT: alert, awake, oriented to person, oriented to place Psychiatric exam: PRESENT: appropriate affect Results Laboratory Results: 09/25/17 04:39 09/27/17 03:13 09/25/17 09/26/17 09/26/17 04:39 15:40 15:40 Creatine Kinase 113 CK-MB (CK-2) 1.51 Troponin I < 0.012 NT-Pro-B Natriuret Pep 408 09/26/17 09/26/17 09/27/17 21:07 21:07 03:13 Creatine Kinase 105 96 CK-MB (CK-2) 1.26 Troponin I < 0.012 NT-Pro-B Natriuret Pep 09/27/17 03:13 Creatine Kinase CK-MB (CK-2) 1.08 Troponin I < 0.012 NT-Pro-B Natriuret Pep Impressions: Chest X-Ray 09/24/17 00:00 IMPRESSION: COPD. NO ACUTE RADIOGRAPHIC FINDING IN THE CHEST. Shoulder X-Ray 09/24/17 00:00 IMPRESSION: 1. Comminuted, displaced, impacted fracture at the proximal right humerus. 2. Comminuted, displaced, impacted fracture of the proximal left humerus with inferior subluxation. 3. Degenerative changes at the bilateral AC joints. Assessment & Plan - Diagnosis (1) Chronic combined systolic and diastolic CHF (congestive heart failure) Is this a current diagnosis for this admission?: Yes (2) Bilateral humeral fractures Qualifiers: Encounter type: initial encounter Fracture type: closed Qualified Code(s) : S42.301A - Unspecified fracture of shaft of humerus, right arm, initial encounter for closed fracture; S42.302A - Unspecified fracture of shaft of humerus, left arm, initial encounter for closed fracture; S42.302A - Unspecified fracture of shaft of humerus, left arm, initial encounter for closed fracture Is this a current diagnosis for this admission?: Yes (3) HTN (hypertension) Qualifiers: Hypertension type: essential hypertension Qualified Code(s): I10 - Essential (primary) hypertension Is this a current diagnosis for this admission?: Yes - Time Time Spent with patient: to be reevaluated in am by Dr Jordan after repeat xray left shoulder Time Spent with patient: 25-34 minutes
[2017-09-29] MEDS: AMLODIPINE BESYLATE 5 MG TABLET PO SCH (19:58)
[2017-09-30] MEDS: ACETAMINOPHEN 325 MG TABLET PO PRN ×5 (03:15→22:23)
[2017-09-30] MEDS: METOPROLOL SUCCINATE 50 MG TAB.SR.24H PO SCH ×2 (09:50→20:11)
[2017-09-30] MEDS: TELMISARTAN PO SCH (09:50)
--- NOTE | 2017-09-30 17:05 | PDOC PROGRESS REPORT ---
Subjective Progress Note for:: 09/30/17 Subjective:: Doing well, no complaints. Will need SNF for rehab. Reason For Visit: B/L HUMERUS FRACTURES,EDEMA Physical Exam Vital Signs: Temp Pulse Resp BP Pulse Ox 97.6 F 69 18 120/65 100 09/30/17 11:57 09/30/17 11:57 09/30/17 11:57 09/30/17 11:57 09/30/17 11:57 Intake & Output 09/29/17 09/30/17 10/01/17 06:59 06:59 06:59 Intake Total 480 1335 Balance 480 1335 Weight 71 kg 73.6 kg General appearance: PRESENT: no acute distress Head exam: PRESENT: normocephalic Eye exam: ABSENT: scleral icterus Ear exam: PRESENT: normal external ear exam Mouth exam: PRESENT: moist Respiratory exam: PRESENT: symmetrical, unlabored Cardiovascular exam: PRESENT: RRR GI/Abdominal exam: PRESENT: rigid. ABSENT: tenderness Rectal exam: PRESENT: deferred Gentrourinary exam: ABSENT: indwelling catheter Neurological exam: PRESENT: alert, awake, oriented to person, oriented to place Psychiatric exam: PRESENT: appropriate affect Results Laboratory Results: 09/25/17 04:39 09/27/17 03:13 09/25/17 09/26/17 09/26/17 04:39 15:40 15:40 Creatine Kinase 113 CK-MB (CK-2) 1.51 Troponin I < 0.012 NT-Pro-B Natriuret Pep 408 09/26/17 09/26/17 09/27/17 21:07 21:07 03:13 Creatine Kinase 105 96 CK-MB (CK-2) 1.26 Troponin I < 0.012 NT-Pro-B Natriuret Pep 09/27/17 03:13 Creatine Kinase CK-MB (CK-2) 1.08 Troponin I < 0.012 NT-Pro-B Natriuret Pep Impressions: Chest X-Ray 09/24/17 00:00 IMPRESSION: COPD. NO ACUTE RADIOGRAPHIC FINDING IN THE CHEST. Shoulder X-Ray 09/24/17 00:00 IMPRESSION: 1. Comminuted, displaced, impacted fracture at the proximal right humerus. 2. Comminuted, displaced, impacted fracture of the proximal left humerus with inferior subluxation. 3. Degenerative changes at the bilateral AC joints. Assessment & Plan - Diagnosis (1) Pedal edema Is this a current diagnosis for this admission?: Yes Plan: Resolved Venous dopplers negative for DVT in the lower extremities. (2) Bilateral humeral fractures Qualifiers: Encounter type: initial encounter Fracture type: closed Qualified Code(s) : S42.301A - Unspecified fracture of shaft of humerus, right arm, initial encounter for closed fracture; S42.302A - Unspecified fracture of shaft of humerus, left arm, initial encounter for closed fracture; S42.302A - Unspecified fracture of shaft of humerus, left arm, initial encounter for closed fracture Is this a current diagnosis for this admission?: Yes Plan: Management per Orthopedic service Pain control (3) HTN (hypertension) Qualifiers: Hypertension type: essential hypertension Qualified Code(s): I10 - Essential (primary) hypertension Is this a current diagnosis for this admission?: Yes Plan: Continue outpatient medications. - Time Time Spent with patient: 25-34 minutes
--- NOTE | 2017-09-30 17:52 | RADIOLOGY REPORT (SQ) ---
EXAM DESCRIPTION: SHOULDER LEFT 2 OR MORE VIEWS COMPLETED DATE/TIME: 09/30/2017 5:38 pm REASON FOR STUDY: Proximal Humerus Fx COMPARISON: None. NUMBER OF VIEWS: Three views. TECHNIQUE: Internal rotation, external rotation, and Y view images acquired of the left shoulder. LIMITATIONS: None. FINDINGS: MINERALIZATION: Osteopenia. BONES: Comminuted fracture of the proximal humerus with inferior displacement of the humeral articula r surface. Moderate acromioclavicular arthropathy. JOINTS: Inferior dislocation. VISUALIZED LUNGS AND RIBS: No pneumothorax. No rib fracture. SOFT TISSUES: No radiopaque foreign body. OTHER: No other significant finding. IMPRESSION: Comminuted fracture dislocation of the proximal humerus. TECHNICAL DOCUMENTATION: JOB ID: [id number] [employer]- All Rights Reserved Reading location - IP/workstation name: [email or web address]
[2017-09-30] MEDS: AMLODIPINE BESYLATE 5 MG TABLET PO SCH (20:10)
[2017-10-01] MEDS: ACETAMINOPHEN 325 MG TABLET PO PRN ×5 (02:51→22:28)
[2017-10-01] MEDS: TELMISARTAN PO SCH (08:25)
[2017-10-01] MEDS: METOPROLOL SUCCINATE 50 MG TAB.SR.24H PO SCH ×2 (08:37→20:10)
--- NOTE | 2017-10-01 13:25 | PDOC PROGRESS REPORT ---
Subjective Progress Note for:: 10/01/17 Subjective:: 82 yr old male with b/l Humerus fractures. Doing well, no complaints. Pain well controlled. Awaiting SNF for rehab. Reason For Visit: B/L HUMERUS FRACTURES,EDEMA Physical Exam Vital Signs: Temp Pulse Resp BP Pulse Ox 98.5 F 83 16 139/74 H 99 10/01/17 08:17 10/01/17 08:17 10/01/17 08:17 10/01/17 08:17 10/01/17 08:17 Intake & Output 09/30/17 10/01/17 10/02/17 06:59 06:59 06:59 Intake Total 1335 1655 Balance 1335 1655 Weight 73.6 kg 70.3 kg General appearance: PRESENT: no acute distress Head exam: PRESENT: normocephalic Eye exam: ABSENT: scleral icterus Ear exam: PRESENT: normal external ear exam Mouth exam: PRESENT: moist Teeth exam: PRESENT: poor dentation Neck exam: ABSENT: tracheal deviation Respiratory exam: PRESENT: symmetrical, unlabored Cardiovascular exam: PRESENT: RRR GI/Abdominal exam: PRESENT: normal bowel sounds, soft. ABSENT: tenderness Rectal exam: PRESENT: deferred Neurological exam: PRESENT: alert, awake, oriented to person, oriented to place Psychiatric exam: PRESENT: appropriate affect Results Laboratory Results: 09/25/17 04:39 09/27/17 03:13 09/25/17 09/26/17 09/26/17 04:39 15:40 15:40 Creatine Kinase 113 CK-MB (CK-2) 1.51 Troponin I < 0.012 NT-Pro-B Natriuret Pep 408 09/26/17 09/26/17 09/27/17 21:07 21:07 03:13 Creatine Kinase 105 96 CK-MB (CK-2) 1.26 Troponin I < 0.012 NT-Pro-B Natriuret Pep 09/27/17 03:13 Creatine Kinase CK-MB (CK-2) 1.08 Troponin I < 0.012 NT-Pro-B Natriuret Pep Impressions: Chest X-Ray 09/24/17 00:00 IMPRESSION: COPD. NO ACUTE RADIOGRAPHIC FINDING IN THE CHEST. Shoulder X-Ray 09/30/17 00:00 IMPRESSION: Comminuted fracture dislocation of the proximal humerus. Assessment & Plan - Diagnosis (1) Bilateral humeral fractures Qualifiers: Encounter type: initial encounter Fracture type: closed Qualified Code(s) : S42.301A - Unspecified fracture of shaft of humerus, right arm, initial encounter for closed fracture; S42.302A - Unspecified fracture of shaft of humerus, left arm, initial encounter for closed fracture; S42.302A - Unspecified fracture of shaft of humerus, left arm, initial encounter for closed fracture Is this a current diagnosis for this admission?: Yes Plan: Management per Orthopedic service Pain control (2) Pedal edema Is this a current diagnosis for this admission?: Yes Plan: Resolved. Venous dopplers negative for DVT in the lower extremities. (3) HTN (hypertension) Qualifiers: Hypertension type: essential hypertension Qualified Code(s): I10 - Essential (primary) hypertension Is this a current diagnosis for this admission?: Yes Plan: Continue outpatient medications. - Time Time Spent with patient: 25-34 minutes
--- NOTE | 2017-10-01 13:33 | PDOC PROGRESS REPORT ---
Subjective Subjective:: Patient sitting at bedside chair. States his pain is significantly improved he has now been ambulating 120 feet along with using his right arm for feeding without significant limitation. Reason For Visit: B/L HUMERUS FRACTURES,EDEMA Physical Exam Vital Signs: Temp Pulse Resp BP Pulse Ox 98.5 F 83 16 139/74 H 99 10/01/17 08:17 10/01/17 08:17 10/01/17 08:17 10/01/17 08:17 10/01/17 08:17 Intake & Output 09/30/17 10/01/17 10/02/17 06:59 06:59 06:59 Intake Total 1335 1655 Balance 1335 1655 Weight 73.6 kg 70.3 kg Musculoskeletal exam: PRESENT: other - Left shoulder: Swelling and ecchymosis with improvement. Full elbow wrist and hand range of motion. Passive forward flexion 50 abduction 40 external rotation 30. Patient tolerates passive motion well. No sensory deficits. Right shoulder: Swelling and ecchymosis improved. Full elbow, wrist and hand range of motion. Passive range of motion forward flexion 80 abduction degrees external rotation 3 Results Laboratory Results: 09/25/17 04:39 09/27/17 03:13 09/25/17 09/26/17 09/26/17 04:39 15:40 15:40 Creatine Kinase 113 CK-MB (CK-2) 1.51 Troponin I < 0.012 NT-Pro-B Natriuret Pep 408 09/26/17 09/26/17 09/27/17 21:07 21:07 03:13 Creatine Kinase 105 96 CK-MB (CK-2) 1.26 Troponin I < 0.012 NT-Pro-B Natriuret Pep 09/27/17 03:13 Creatine Kinase CK-MB (CK-2) 1.08 Troponin I < 0.012 NT-Pro-B Natriuret Pep Impressions: Chest X-Ray 09/24/17 00:00 IMPRESSION: COPD. NO ACUTE RADIOGRAPHIC FINDING IN THE CHEST. Shoulder X-Ray 09/30/17 00:00 IMPRESSION: Comminuted fracture dislocation of the proximal humerus. Assessment & Plan - Diagnosis (1) Proximal humerus fracture Qualifiers: Encounter type: subsequent encounter Fracture type: closed Laterality: left Fracture healing: with routine healing Is this a current diagnosis for this admission?: Yes Plan: I have reviewed patient's radiographs compared to previous radiographs and CT scan there is evidence of increased inferior displacement likely secondary to original trauma to the axillary nerve. Furthermore there is increased collapse along the articular surface. Given these findings I feel patient would benefit from operative intervention which includes left shoulder arthroplasty possible reverse. Risks and benefits of the surgical procedure have been explained in detail to the patient and family risks including neurovascular risk, infection, postoperative pain, postoperative stiffness, hardware complications we also discussed decision to proceed with nonoperative treatment which is not an unreasonable decision given patient's age and fracture. I do feel surgery more likely than not improves his total range of motion outcome however clinical significance may be somewhat questionable given patient's fracture. Patient's family will determine if he would like to proceed with operative intervention if so then will be to proceed with operative treatment Monday10/03/17 (2) Proximal humeral fracture Qualifiers: Encounter type: subsequent encounter Fracture type: closed Laterality: right Is this a current diagnosis for this admission?: Yes
[2017-10-01] MEDS: AMLODIPINE BESYLATE 5 MG TABLET PO SCH (20:10)
[2017-10-02] MEDS: ACETAMINOPHEN 325 MG TABLET PO PRN ×4 (03:51→20:02)
[2017-10-02 05:13] LABS: HEMOGLOBIN 9.4 g/dL (13.5-17.0); MEAN CORPUSCULAR HGB CONC 33.7 g/dL (32.0-36.0); MEAN CORPUSCULAR VOLUME 95 fl (80-97); PLATELET COUNT 355 10^3/uL (150-450); RED BLOOD COUNT 2.94 10^6/uL (4.35-5.55); RED CELL DISTRIBUTION WIDTH 14.8 % (11.5-14.0); WHITE BLOOD COUNT 7.1 10^3/uL (4.0-10.5)
--- NOTE | 2017-10-02 08:59 | RADIOLOGY REPORT (SQ) ---
EXAM DESCRIPTION: SHOULDER LEFT 1 VIEW COMPLETED DATE/TIME: 10/02/2017 8:36 am REASON FOR STUDY: Axillary lateral/PREOP COMPARISON: 09/30/2017 left shoulder three views 09/24/2017 bilateral shoulders three views NUMBER OF VIEWS: One view TECHNIQUE: Axillary view acquired of the left shoulder. LIMITATIONS: None. FINDINGS: On the single portable axillary view of the left shoulder, there is normal glenohumeral inez int alignment. No glenohumeral dislocation. There is a subacute healing left proximal humerus fracture with bony bridging callus. IMPRESSION: No posterior humeral head dislocation with respect to the bony glenoid on transaxillary view Healing subacute left humeral head fracture with bony bridging callus TECHNICAL DOCUMENTATION: JOB ID: [id number] [employer]- All Rights Reserved Reading location - IP/workstation name: [email or web address]
[2017-10-02] MEDS: METOPROLOL SUCCINATE 50 MG TAB.SR.24H PO SCH ×2 (09:11→19:56)
[2017-10-02] MEDS: TELMISARTAN PO SCH (09:11)
--- NOTE | 2017-10-02 13:25 | PDOC PROGRESS REPORT ---
Subjective Progress Note for:: 10/02/17 Subjective:: 82 yr old male who sustained b/l Humerus fractures after a fall approximately 2 weeks ago. Doing well, no complaints. Pain well controlled. Awaiting SNF for rehab after surgery on the L shoulder planned for 10/03/17. Reason For Visit: B/L HUMERUS FRACTURES,EDEMA Physical Exam Vital Signs: Temp Pulse Resp BP Pulse Ox 97.9 F 68 18 115/77 98 10/02/17 11:39 10/02/17 11:39 10/02/17 11:39 10/02/17 11:39 10/02/17 11:39 Intake & Output 10/01/17 10/02/17 10/03/17 06:59 06:59 06:59 Intake Total 1655 1425 Balance 1655 1425 Weight 70.3 kg 70.7 kg General appearance: PRESENT: no acute distress Head exam: PRESENT: normocephalic Eye exam: ABSENT: scleral icterus Ear exam: PRESENT: normal external ear exam Neck exam: ABSENT: tracheal deviation Respiratory exam: PRESENT: symmetrical, unlabored GI/Abdominal exam: PRESENT: normal bowel sounds, soft Rectal exam: PRESENT: deferred Gentrourinary exam: ABSENT: indwelling catheter Neurological exam: PRESENT: alert, awake, oriented to time, oriented to situation Psychiatric exam: PRESENT: appropriate affect, normal mood Results Laboratory Results: 10/02/17 04:15 09/27/17 03:13 10/02/17 04:15 WBC 7.1 RBC 2.94 L Hgb 9.4 L Hct 28.0 L MCV 95 MCH 32.0 MCHC 33.7 RDW 14.8 H Plt Count 355 09/25/17 09/26/17 09/26/17 04:39 15:40 15:40 Creatine Kinase 113 CK-MB (CK-2) 1.51 Troponin I < 0.012 NT-Pro-B Natriuret Pep 408 09/26/17 09/26/17 09/27/17 21:07 21:07 03:13 Creatine Kinase 105 96 CK-MB (CK-2) 1.26 Troponin I < 0.012 NT-Pro-B Natriuret Pep 09/27/17 03:13 Creatine Kinase CK-MB (CK-2) 1.08 Troponin I < 0.012 NT-Pro-B Natriuret Pep Impressions: Chest X-Ray 05/13/18 00:00 IMPRESSION: COPD. NO ACUTE RADIOGRAPHIC FINDING IN THE CHEST. Shoulder X-Ray 10/02/17 00:00 IMPRESSION: No posterior humeral head dislocation with respect to the bony glenoid on transaxillary view Healing subacute left humeral head fracture with bony bridging callus Assessment & Plan - Diagnosis (1) Bilateral humeral fractures Qualifiers: Encounter type: initial encounter Fracture type: closed Qualified Code(s) : S42.301A - Unspecified fracture of shaft of humerus, right arm, initial encounter for closed fracture; S42.302A - Unspecified fracture of shaft of humerus, left arm, initial encounter for closed fracture; S42.302A - Unspecified fracture of shaft of humerus, left arm, initial encounter for closed fracture Is this a current diagnosis for this admission?: Yes Plan: Management per Orthopedic service Pain control (2) Pedal edema Is this a current diagnosis for this admission?: Yes Plan: Resolved. Venous dopplers negative for DVT in the lower extremities. No CHF. (3) HTN (hypertension) Qualifiers: Hypertension type: essential hypertension Qualified Code(s): I10 - Essential (primary) hypertension Is this a current diagnosis for this admission?: Yes Plan: Continue outpatient medications. - Time Time Spent with patient: 25-34 minutes
[2017-10-02] MEDS: AMLODIPINE BESYLATE 5 MG TABLET PO SCH (19:56)
[2017-10-03] MEDS: ACETAMINOPHEN 325 MG TABLET PO PRN ×4 (00:48→14:05)
[2017-10-03] MEDS: METOPROLOL SUCCINATE 50 MG TAB.SR.24H PO SCH (07:40)
[2017-10-03] MEDS: TELMISARTAN PO SCH (07:40)
--- NOTE | 2017-10-03 07:50 | PDOC PROGRESS REPORT ---
Subjective Progress Note for:: 10/03/17 Subjective:: Patient sitting at bedside chair. States his pain is significantly improved he has now been ambulating 120 feet along with using his right arm for feeding without significant limitation. Reason For Visit: B/L HUMERUS FRACTURES,EDEMA Physical Exam Vital Signs: Temp Pulse Resp BP Pulse Ox 98.3 F 66 20 98/55 L 100 10/02/17 23:16 10/02/17 23:16 10/02/17 23:16 10/02/17 23:16 10/02/17 23:16 Intake & Output 10/02/17 10/03/17 10/04/17 06:59 06:59 06:59 Intake Total 1425 985 Balance 1425 985 Weight 70.7 kg 70.7 kg Musculoskeletal exam: PRESENT: other - Right shoulder: Swelling and ecchymosis significantly improved. Full elbow wrist and hand range of motion. No sensory deficits. No gross deformity. Left shoulder: Residual swelling and ecchymosis extending to the forearm. No sensory deficits. Full elbow wrist and hand range of motion. Passive range of motion forward flexion 80 abduction 40 external rotation 30. No crepitus with range of motion. No gross deformity. Results Laboratory Results: 10/02/17 04:15 09/27/17 03:13 09/25/17 09/26/17 09/26/17 04:39 15:40 15:40 Creatine Kinase 113 CK-MB (CK-2) 1.51 Troponin I < 0.012 NT-Pro-B Natriuret Pep 408 09/26/17 09/26/17 09/27/17 21:07 21:07 03:13 Creatine Kinase 105 96 CK-MB (CK-2) 1.26 Troponin I < 0.012 NT-Pro-B Natriuret Pep 09/27/17 03:13 Creatine Kinase CK-MB (CK-2) 1.08 Troponin I < 0.012 NT-Pro-B Natriuret Pep Impressions: Chest X-Ray 09/24/17 00:00 IMPRESSION: COPD. NO ACUTE RADIOGRAPHIC FINDING IN THE CHEST. Shoulder X-Ray 10/02/17 00:00 IMPRESSION: No posterior humeral head dislocation with respect to the bony glenoid on transaxillary view Healing subacute left humeral head fracture with bony bridging callus Assessment & Plan - Diagnosis (1) Proximal humerus fracture Qualifiers: Encounter type: subsequent encounter Fracture type: closed Laterality: left Fracture healing: with routine healing Is this a current diagnosis for this admission?: Yes Plan: I have reviewed patient's radiographs compared to previous radiographs and CT scan there is evidence of increased inferior displacement likely secondary to original trauma to the axillary nerve. Although radiographs demonstrate increased collapse there is no evidence of dislocation as confirmed with axillary lateral view. Once again discussed treatment options including operative intervention versus continued conservative management. At this point patient feels as though he is improving and would like to avoid operative treatment which I feel is a reasonable option. We will allow fracture consolidation over the next 4 weeks and begin range of motion patient understands if he continues to have persistent discomfort or unsatisfactory function we can once again revisit the possibility of operative treatment. I discussed the case in the presence of the patient's daughter and son all parties are in agreement with the current treatment plan. Patient is stable for discharge to correction facility. Will follow-up with me in 7-10 days for recheck in the office. (2) Proximal humeral fracture Qualifiers: Encounter type: subsequent encounter Fracture type: closed Laterality: right Is this a current diagnosis for this admission?: Yes
[2017-10-03 12:52] VITALS: BP 116/75
--- NOTE | 2017-10-03 13:52 | PDOC TRANSFER SUMMARY ---
General - Admit/Disc Date/PCP Admission Date/Primary Care Provider: 09/24/17 10:29 JOSH RODAS DO Orthopedic surgeon: Dr. Jordan Discharge Date: 10/03/17 - Discharge Diagnosis (1) Bilateral humeral fractures Is this a current diagnosis for this admission?: Yes Summary: He was evaluated by orthopedic surgery he did not feel he needed surgical intervention during this hospitalization. He will follow-up at his office as an outpatient. (2) Chronic combined systolic and diastolic CHF (congestive heart failure) Is this a current diagnosis for this admission?: Yes Summary: He remained euvolemic during this hospitalization (3) Pedal edema Is this a current diagnosis for this admission?: Yes Summary: Due to his underlying heart failure. Stable (4) HTN (hypertension) Is this a current diagnosis for this admission?: Yes Summary: Stable (5) Anemia Is this a current diagnosis for this admission?: Yes Summary: This is an anemia of chronic disease and is stable (6) Hyponatremia Is this a current diagnosis for this admission?: Yes Summary: Quite mild and likely chronic - Additional Information Resuscitation Status: Full Code Discharge Diet: Regular Discharge Activity: Activity As Tolerated, Balance Activity w/Rest, Slowly Increase Activity, Supervised Activity, Walk Frequently Prescriptions: Tramadol HCl [Ultram 50 mg Tablet] 25 mg PO Q6HP PRN #20 tablet PRN Reason: Home Medications: Amlodipine Besylate 5 mg PO QAM 09/24/17 Metoprolol Succinate [Toprol Xl 50 mg Tab.sr] 50 mg PO Q12@0800,199909/24/17 Ondansetron [Zofran Odt 4 mg Tablet] 4 mg PO Q4HP PRN tab.rapdis 10/03/17 Tramadol HCl [Ultram 50 mg Tablet] 25 mg PO Q6HP PRN #20 tablet 10/03/17 History of Present Illness Admission Date/PCP: 09/24/17 10:29 JOSH RODAS DO History of Present Illness: ARNEL GOINS is a 82 year old male Hospital Course Hospital Course: The patient is an 84-year-old male who sustained a fall while in [place]. He was taken to the ER and had a CT of the brain which revealed no intracranial hemorrhage. He was found to have bilateral nasal bone and anterior maxillary nasal spinal fractures. He also was found to have bilateral humerus fractures. He traveled back to the [facility] and was scheduled to see orthopedic surgery as an outpatient. However he developed worsening pain and swelling in his lower extremities and he presented to the emergency room for further evaluation. He was evaluated by orthopedic surgery. He was followed quite closely during this hospitalization and they kept him here to make sure that they stayed aligned and he did not need any surgical intervention. Ultimately a decision has been made to just follow this up as an outpatient. The patient is unable to take care of himself at this point and the family has opted for subacute rehabilitation. I have been notified by the discharge planners that he has a bed available today and he will be transferred there today in stable condition. He will follow-up with orthopedic surgery as an outpatient. Physical Exam Vital Signs: Temp Pulse Resp BP Pulse Ox 98.2 F 69 14 116/75 100 10/03/17 12:46 10/03/17 12:46 10/03/17 12:46 10/03/17 12:46 10/03/17 12:46 Intake & Output 10/02/17 10/03/17 10/04/17 06:59 06:59 06:59 Intake Total 1425 985 Balance 1425 985 Weight 70.7 kg 70.7 kg General appearance: PRESENT: no acute distress, well-developed, well-nourished Head exam: PRESENT: atraumatic, normocephalic Mouth exam: PRESENT: moist, tongue midline Neck exam: ABSENT: carotid bruit, JVD, lymphadenopathy, thyromegaly Respiratory exam: PRESENT: clear to auscultation carly. ABSENT: rales, rhonchi, wheezes Cardiovascular exam: PRESENT: RRR. ABSENT: diastolic murmur, rubs, systolic murmur Pulses: PRESENT: normal dorsalis pedis pul GI/Abdominal exam: PRESENT: normal bowel sounds, soft. ABSENT: distended, guarding, mass, organolmegaly, rebound, tenderness Rectal exam: PRESENT: deferred Extremities exam: PRESENT: other - He has slings in place to both of his upper extremities. Musculoskeletal exam: PRESENT: ambulatory Neurological exam: PRESENT: alert, awake, oriented to person, oriented to place , oriented to time, oriented to situation, CN II-XII grossly intact. ABSENT: motor sensory deficit Psychiatric exam: PRESENT: appropriate affect, normal mood. ABSENT: homicidal ideation, suicidal ideation Skin exam: PRESENT: dry, intact, warm. ABSENT: cyanosis, rash Results Laboratory Results: 10/02/17 04:15 09/27/17 03:13 09/25/17 09/26/17 09/26/17 04:39 15:40 15:40 Creatine Kinase 113 CK-MB (CK-2) 1.51 Troponin I < 0.012 NT-Pro-B Natriuret Pep 408 09/26/17 09/26/17 09/27/17 21:07 21:07 03:13 Creatine Kinase 105 96 CK-MB (CK-2) 1.26 Troponin I < 0.012 NT-Pro-B Natriuret Pep 09/27/17 03:13 Creatine Kinase CK-MB (CK-2) 1.08 Troponin I < 0.012 NT-Pro-B Natriuret Pep Impressions: Chest X-Ray 09/24/17 00:00 IMPRESSION: COPD. NO ACUTE RADIOGRAPHIC FINDING IN THE CHEST. Shoulder X-Ray 10/02/17 00:00 IMPRESSION: No posterior humeral head dislocation with respect to the bony glenoid on transaxillary view Healing subacute left humeral head fracture with bony bridging callus Transfer Plan - Time Spent with Patient Time spent with patient: Greater than 30 Minutes Qualifiers - * PATIENT BEING DISCHARGED WITH ANY OF THE FOLLOWING DIAGNOSIS: No Plan Discharge Plan: He will be transitioned today to subacute rehabilitation Time Spent: Greater than 30 Minutes
== END 2017-10-03 15:21 | disposition short-term general hospital (02) | DRG 563 ==
LOC: ER 04:24 → UNDOADMIN 10:29 → EH 10:29 → 5 16:19
PROVIDERS: ADMIT Internal Medicine; ATTEND Internal Medicine
PROC: 3E0F73Z Introduction of Anti-inflammatory into Respiratory Tract, Via Natural or Artificial Opening (ICD-10-PCS; principal; 2017-09-24)
DX: S42.201A Unspecified fracture of upper end of right humerus, initial encounter for closed fracture (principal); S42.202A Unspecified fracture of upper end of left humerus, initial encounter for closed fracture; S02.40DA Maxillary fracture, left side, initial encounter for closed fracture; S02.40CA Maxillary fracture, right side, initial encounter for closed fracture; I50.42 Chronic combined systolic (congestive) and diastolic (congestive) heart failure; E87.1 Hypo-osmolality and hyponatremia; S02.2XXA Fracture of nasal bones, initial encounter for closed fracture; R06.02 Shortness of breath; I11.0 Hypertensive heart disease with heart failure; D63.8 Anemia in other chronic diseases classified elsewhere; J44.9 Chronic obstructive pulmonary disease, unspecified; W06.XXXA Fall from bed, initial encounter; Z79.899 Other long term (current) drug therapy; Y92.9 Unspecified place or not applicable; Z87.891 Personal history of nicotine dependence; Z88.2 Allergy status to sulfonamides; Z82.49 Family history of ischemic heart disease and other diseases of the circulatory system
CPT/HCPCS: 36415; 71045; 80048; 80053; 80061; 82550; 82553; 83036; 83735; 83880; 84100; 84443; 84484; 85025; 85027; 93005; 93010; 93306; 93970; 99285; G8978-GP; G8979-GP; G8987-GO; G8988-GO; J1170; J2270

== ENCOUNTER 2018-04-16 18:27 | Observation (INO) | payer MEDICARE, BC ==
--- NOTE | 2018-04-16 20:09 | ER Document Report ---
ED Medical Screen (RME) - General Chief Complaint: Groin Pain Stated Complaint: ABDOMINAL PAIN Time Seen by Provider: 04/16/18 19:56 Notes: Patient is an 82-year-old female presenting to the emergency department complaining of right groin pain. Patient states 2 days ago he had multiple episodes of diarrhea and generalized abdominal pain. Patient states generalized abdominal pain and diarrhea have since resolved. States this afternoon he felt a sharp pain in his right lower groin and noticed that his hernia was "really swollen." Patient states he has intermittent pain in that right groin area which is why he presents to the emergency room. Physical exam: Swollen, minorly tender, relatively hard to touch area in the right inguinal region. No swelling or erythema noted to bilateral testicles. Direct pressure was applied to the area and the hernia was easily reduced. Patient states he no longer has any right groin pain. I have greeted and performed a rapid initial assessment of this patient. A comprehensive ED assessment and evaluation of the patient, analysis of test results and completion of the medical decision making process will be conducted by additional ED providers. TRAVEL OUTSIDE OF THE [place] IN LAST 30 DAYS: No - Related Data Allergies/Adverse Reactions: Sulfa (Sulfonamide Antibiotics) Allergy (Verified 09/24/17 06:35) Past Medical History - Past Medical History Cardiac Medical History: Reports: Hx Hypertension Pulmonary Medical History: Denies: Hx Asthma, Hx Bronchitis, Hx COPD, Hx Pneumonia, Hx Intubation, Hx Respiratory Failure, Hx Sleep Apnea, Hx Tuberculosis Endocrine Medical History: Denies: Hx Diabetes Mellitus Type 1, Hx Diabetes Mellitus Type 2, Hx Hyperthyroidism, Hx Hypothyroidism Renal/ Medical History: Denies: Hx Peritoneal Dialysis Past Surgical History: Denies: Hx Appendectomy, Hx Cardiac Catheterization, Hx Carotid Endarterectomy, Hx Cholecystectomy, Hx Colostomy, Hx Coronary Artery Bypass Graft, Hx Coronary Stent, Hx Gastric Bypass Surgery, Hx Herniorrhaphy, Hx Ileostomy, Hx Internal Defibrillator, Hx Orthopedic Surgery, Hx Pacemaker, Hx Tonsillectomy, Hx Valve Replacement, Hx Vascular Surgery, Other - Immunizations History of Influenza Vaccine for 02/2017 - 07/2017 Season: No Physical Exam - Vital signs Vitals: Temp Pulse Resp BP Pulse Ox 97.7 F 86 14 159/78 H 98 04/16/18 18:56 04/16/18 18:56 04/16/18 18:56 04/16/18 18:56 04/16/18 18:56 Course - Vital Signs Vital signs: Temp Pulse Resp BP Pulse Ox 97.7 F 86 14 159/78 H 98 04/16/18 18:56 04/16/18 18:56 04/16/18 18:56 04/16/18 18:56 04/16/18 18:56 Doctor's Discharge - Discharge Referrals: JOSH RODAS, [Primary Care Provider] - Follow up as needed
[2018-04-16 20:39] LABS: ABSOLUTE EOSINOPHILS # (AUTO) 0.1 10^3/uL (0.0-0.6); ABSOLUTE LYMPHOCYTES (AUTO) 1.5 10^3/uL (0.5-4.7); ABSOLUTE MONOCYTES (AUTO) 0.9 10^3/uL (0.1-1.4); ABSOLUTE NEUT (AUTO) 3.9 10^3/uL (1.7-8.2); BASOPHILS % (AUTO) 0.7 % (0-2); HEMATOCRIT 39.4 % (37.9-51.0); HEMOGLOBIN 13.3 g/dL (13.5-17.0); LYMPHOCYTES % (AUTO) 23.1 % (13-45); MEAN CORPUSCULAR HEMOGLOBIN 31.3 pg (27.0-33.4); MEAN CORPUSCULAR HGB CONC 33.6 g/dL (32.0-36.0); MEAN CORPUSCULAR VOLUME 93 fl (80-97); PLATELET COUNT 173 10^3/uL (150-450); RED BLOOD COUNT 4.23 10^6/uL (4.35-5.55); RED CELL DISTRIBUTION WIDTH 14.8 % (11.5-14.0); SEGMENTED NEUTROPHILS % (AUTO) 60.2 % (42-78); TOTAL CELLS COUNTED % (AUTO) 100 %; WHITE BLOOD COUNT 6.4 10^3/uL (4.0-10.5)
[2018-04-16 20:46] LABS: APPEARANCE,URINE CLEAR; BILIRUBIN,URINE NEGATIVE (NEGATIVE); COLOR,URINE COLORLESS; GLUCOSE, URINE NEGATIVE (NEGATIVE); KETONES,URINE NEGATIVE (NEGATIVE); LEUKOCYTE ESTERASE,URINE NEGATIVE (NEGATIVE); NITRITE,URINE NEGATIVE (NEGATIVE); PROTEIN,URINE NEGATIVE (NEGATIVE); URINE SPECIFIC GRAVITY 1.003; UROBILINOGEN,URINE NEGATIVE mg/dL (<2.0)
--- NOTE | 2018-04-16 20:53 | RADIOLOGY REPORT (SQ) ---
EXAM DESCRIPTION: U/S NON-OB PELVIS LTD W/O DOP COMPLETED DATE/TIME: 04/16/2018 8:42 pm REASON FOR STUDY: right inguinal COMPARISON: None. TECHNIQUE: Dynamic and static grayscale images acquired of the pelvis via transabdominal approach an d recorded on PACS. Additional selected color Doppler and spectral images recorded. LIMITATIONS: None. FINDINGS: There is a prominent segment of colon in the suprapubic region of the pelvis that shows pe ristalsis. No inguinal hernia is documented. IMPRESSION: There is a prominent loop of colon that shows peristalsis. This is in the suprapubic re gion. Is there concern for volvulus? Consider CT with contrast if clinically indicated. TECHNICAL DOCUMENTATION: JOB ID: [id number] [employer]- All Rights Reserved Rev-09/29 Reading location - IP/workstation name: [email or web address]
[2018-04-16 20:56] LABS: ALANINE AMINOTRANSFERASE 18 U/L (21-72); ALBUMIN 4.8 g/dL (3.5-5.0); ALKALINE PHOSPHATASE 102 U/L (38-126); ANION GAP 16 (5-19); ASPARTATE AMINO TRANSFERASE 25 U/L (17-59); BILIRUBIN,TOTAL 0.5 mg/dL (0.2-1.3); BLOOD UREA NITROGEN 14 mg/dL (7-20); CALCIUM 9.7 mg/dL (8.4-10.2); CARBON DIOXIDE 24 mmol/L (22-30); CHLORIDE 98 mmol/L (98-107); GLUCOSE 105 mg/dL (75-110); SODIUM 138.4 mmol/L (137-145); TOTAL PROTEIN 8.4 g/dL (6.3-8.2)
--- NOTE | 2018-04-16 23:52 | ER Document Report ---
ED General - General Chief Complaint: Groin Pain Stated Complaint: ABDOMINAL PAIN Time Seen by Provider: 04/16/18 19:56 Notes: Patient is an 82-year-old male presents with complaint of right sided inguinal hernia. He says he has had this hernia for many years. He says it comes and goes. Today it suddenly popped out and is very painful. He was seen in triage and it was reduced. He says that a few days ago he had some diarrhea but that has since resolved he has had normal bowel movements. No blood in the stool. No fevers. No vomiting. Currently he is pain-free and feels well but says that for several hours he had a lot of pain with his hernia and this is never happened before. No other complaints at this time. TRAVEL OUTSIDE OF THE [place] IN LAST 30 DAYS: No - Related Data Allergies/Adverse Reactions: Sulfa (Sulfonamide Antibiotics) Allergy (Verified 09/24/17 06:35) Past Medical History - Social History Smoking Status: Former Smoker Frequency of alcohol use: None Drug Abuse: None Family History: Reviewed & Not Pertinent Patient has suicidal ideation: No Patient has homicidal ideation: No - Past Medical History Cardiac Medical History: Reports: Hx Hypertension Pulmonary Medical History: Denies: Hx Asthma, Hx Bronchitis, Hx COPD, Hx Pneumonia, Hx Intubation, Hx Respiratory Failure, Hx Sleep Apnea, Hx Tuberculosis Endocrine Medical History: Denies: Hx Diabetes Mellitus Type 1, Hx Diabetes Mellitus Type 2, Hx Hyperthyroidism, Hx Hypothyroidism Renal/ Medical History: Denies: Hx Peritoneal Dialysis Past Surgical History: Denies: Hx Appendectomy, Hx Cardiac Catheterization, Hx Carotid Endarterectomy, Hx Cholecystectomy, Hx Colostomy, Hx Coronary Artery Bypass Graft, Hx Coronary Stent, Hx Gastric Bypass Surgery, Hx Herniorrhaphy, Hx Ileostomy, Hx Internal Defibrillator, Hx Orthopedic Surgery, Hx Pacemaker, Hx Tonsillectomy, Hx Valve Replacement, Hx Vascular Surgery, Other Review of Systems - Review of Systems Notes: My Normal Review Basic REVIEW OF SYSTEMS: CONSTITUTIONAL : Denies fever, chills, or sweats. Denies recent illness. EENT: Denies eye, ear, throat, or mouth pain or symptoms. Denies nasal or sinus congestion. CARDIOVASCULAR: Denies chest pain. RESPIRATORY: Denies cough, cold, or chest congestion. Denies shortness of breath, difficulty breathing, or wheezing. GASTROINTESTINAL: No true abdominal pain. Patient had pain over the right inguinal area where he had a hernia that was not reduced. MUSCULOSKELETAL: Denies neck or back pain or joint pain or swelling. SKIN: Denies rash or skin lesions. NEUROLOGICAL: Denies altered mental status or loss of consciousness. Denies headache. Denies weakness or paralysis or loss of use of either side. Denies problems with gait or speech. Denies sensory or motor loss. ALL OTHER SYSTEMS REVIEWED AND NEGATIVE. Physical Exam - Vital signs Vitals: Temp Pulse Resp BP Pulse Ox 97.7 F 86 14 159/78 H 98 04/16/18 18:56 04/16/18 18:56 04/16/18 18:56 04/16/18 18:56 04/16/18 18:56 - Notes Notes: General Appearance: Well nourished, alert, cooperative, no acute distress, no obvious discomfort. Well-appearing. Vitals: reviewed, See vital signs table. Head: no swelling or tenderness to the head Eyes: PERRL, EOMI, Conjuctiva clear Mouth: No decreasd moisture Lungs: No wheezing, No rales, No rhonci, No accessory muscle use, good air exchange bilaterally. Heart: Normal rate, Regular rythm, No murmur, no rub Abdomen: Normal BS, soft, No rigidity, anterior abdominal tenderness palpation. Patient does have a very soft right inguinal hernia that is very easily reducible. No redness to the skin. No irritation. Extremities: strength 5/5 in all extremities, good pulses in all extremities, no swelling or tenderness in the extremities, no edema. Skin: warm, dry, appropriate color, no rash Neuro: speech clear, oriented x 3, normal affect, responds appropriately to questions. Course - Re-evaluation Re-evalutation: 04/17/18 06:19 I talked the patient about different options such as outpatient follow-up in the surgery clinic with return to ER immediately if he has recurrent painful hernia versus speaking with the surgical list. I informed her my concern is that he is had 2 episodes today where his hernia came out and was stuck and was very painful and had to be reduced. This suggest to me that he is at high risk for incarceration. After long discussion with the patient he could not make up his mind and said he wanted me to speak with a surgeon before he would make up his mind. I did speak with the surgeon, Dr. Kelly, he says he is happy to admit the patient or to the patient the office. I told the patient this and eventually agreed with admission to be evaluated by a surgeon for potential hernia repair. Dictation of this chart was performed using voice recognition software; therefore, there may be some unintended grammatical errors. - Vital Signs Vital signs: Temp Pulse Resp BP Pulse Ox 97.8 F 73 18 132/75 H 100 04/17/18 04:15 04/17/18 04:15 04/17/18 04:15 04/17/18 04:15 04/17/18 04:15 - Laboratory Result Diagrams: 04/16/18 20:27 04/16/18 20:27 Laboratory results interpreted by me: 04/16/18 04/16/18 20:27 20:27 RBC 4.23 L Hgb 13.3 L RDW 14.8 H Monocytes % 14.0 H ALT 18 L Total Protein 8.4 H Discharge - Discharge Clinical Impression: Inguinal hernia Qualifiers: Obstruction and gangrene presence: without obstruction or gangrene Laterality: unilateral Recurrence: recurrent Qualified Code(s): K40.91 - Unilateral inguinal hernia, without obstruction or gangrene, recurrent Condition: Stable Disposition: ADMITTED OBSERVATION Admitting Provider: Surgicalist Unit Admitted: Surgical Floor
[2018-04-17] MEDS ORDERED: NORMAL SALINE 1000 ML 1,000 ML IV ONE (01:49)
--- NOTE | 2018-04-17 02:21 | RADIOLOGY REPORT (SQ) ---
EXAM DESCRIPTION: XR CHEST 1 VIEW COMPLETED DATE/TME: 04/17/2018 01:49 CLINICAL HISTORY: 82 years, Male, pre op COMPARISON: None. NUMBER OF VIEWS: One TECHNIQUE: AP view of the chest LIMITATIONS: None. FINDINGS: Lungs are emphysematous but clear. Bilateral nipple shadows are noted. There is no pneumothorax or pleural effusion. The heart is normal in size. There is no acute fracture. IMPRESSION: Emphysematous appearing lungs. copyright 2010 [employer]- All Rights Reserved
[2018-04-17 03:35] LABS: INTERNATIONAL RATION (INR) 1.13; PROTHROMBIN TIME 15.1 SEC (11.4-15.4)
[2018-04-17 03:36] LABS: PARTIAL THROMBOPLASTIN TIME 35.9 SEC (23.5-35.8)
[2018-04-17] MEDS ORDERED: NORMAL SALINE 1000 ML 1,000 ML IV PRN (05:09)
[2018-04-17] MEDS ORDERED: RINGERS SOLUTION,LACTATED 1,000 ML IV PRN (05:12)
[2018-04-17] MEDS ORDERED: CEFAZOLIN 1 GM/D5W RTU 1 GM/50 ML RTUPB IV ONE (05:20)
--- NOTE | 2018-04-17 05:20 | PDOC H&P ---
History of Present Illness Admission Date/PCP: 04/17/18 01:55 JOSH RODAS DO Patient complains of: Right inguinal hernia, incarcerated History of Present Illness: ARNEL GOINS is a 82 year old male Presents emergency department complaining of painful, right inguinal hernia. The patient is recovering from a 3-day history of abdominal pain nausea vomiting diarrhea felt secondary to gastroenteritis ; he had multiple episodes of diarrhea. Abdominal pain was intense, especially in the right lower quadrant. He was seen in the emergency department where he had a incarcerated inguinal hernia, had that manually reduce, then it became painful again. Patient was concerned he would develop more problems and asked to be seen by a surgeon for repair. Patient was admitted to the hospital for operative intervention. Prior to this episode, patient in usual state of good health, very active, eating, and having bowel movements twice a day. He is never had a colonoscopy. Past Medical History Cardiac Medical History: Reports: Hypertension Pulmonary Medical History: Denies: Asthma, Bronchitis, Chronic Obstructive Pulmonary Disease (COPD), Intubation, Pneumonia, Respiratory Failure, Sleep Apnea, Tuberculosis Endocrine Medical History: Denies: Diabetes Mellitus Type 1, Diabetes Mellitus Type 2, Hyperthyroidism, Hypothyroidism Past Surgical History Past Surgical History: Bilateral humeral fractures September 2017 managed nonoperatively Past Surgical History: Denies: Appendectomy, Cardiac Catheterization, Carotid Endarterectomy, Cholecystectomy, Colostomy, Coronary Artery Bypass Graft, Coronary Stent, Gastric Bypass Surgery, Herniorrhaphy, Ileostomy, Internal Defibrillator, Orthopedic Surgery, Pacemaker, Tonsillectomy, Valve Replacement, Vascular Surgery, Other Social History Smoking Status: Former Smoker Frequency of Alcohol Use: None Hx Recreational Drug Use: No Hx Prescription Drug Abuse: No Family History Family History: Reviewed & Not Pertinent Parental Family History Reviewed: Yes Children Family History Reviewed: Yes Sibling(s) Family History Reviewed.: Yes Medication/Allergy Home Medications: Amlodipine Besylate 5 mg PO QAM 09/24/17 Metoprolol Succinate [Toprol Xl 50 mg Tab.sr] 50 mg PO Q12@0800,199909/24/17 Allergies/Adverse Reactions: Sulfa (Sulfonamide Antibiotics) Allergy (Verified 09/24/17 06:35) Review of Systems Constitutional: PRESENT: as per HPI Eyes: ABSENT: visual disturbances Ears: ABSENT: hearing changes Cardiovascular: ABSENT: chest pain, dyspnea on exertion, edema, orthropnea, palpitations Respiratory: ABSENT: cough, hemoptysis Gastrointestinal: PRESENT: as per HPI Genitourinary: ABSENT: dysuria, hematuria Musculoskeletal: ABSENT: joint swelling Physical Exam Vital Signs: Temp Pulse Resp BP Pulse Ox 97.8 F 73 18 132/75 H 100 04/17/18 04:15 04/17/18 04:15 04/17/18 04:15 04/17/18 04:15 04/17/18 04:15 Intake & Output 04/15/18 04/16/18 04/17/18 06:59 06:59 06:59 Weight 65.1 kg General appearance: PRESENT: no acute distress Head exam: PRESENT: normocephalic Eye exam: PRESENT: EOMI Teeth exam: PRESENT: other - Poor dentition Neck exam: PRESENT: full ROM Respiratory exam: PRESENT: clear to auscultation carly Cardiovascular exam: PRESENT: RRR Pulses: PRESENT: normal carotid pulses, normal radial pulses, normal femoral pulses Vascular exam: PRESENT: normal capillary refill GI/Abdominal exam: PRESENT: other - Soft nontender no peritoneal signs no rigidity Rectal exam: PRESENT: deferred Gentrourinary exam: PRESENT: other - Right inguinal hernia, reducible; no hernia on the left side; testicles descended bilaterally Musculoskeletal exam: PRESENT: ambulatory Neurological exam: PRESENT: alert, awake, oriented to person, oriented to place , oriented to time, oriented to situation Psychiatric exam: PRESENT: appropriate affect Results Impressions: Pelvis Ultrasound 04/16/18 20:06 IMPRESSION: There is a prominent loop of colon that shows peristalsis. This is in the suprapubic region. Is there concern for volvulus? Consider CT with contrast if clinically indicated. Chest X-Ray 04/17/18 01:49 IMPRESSION: Emphysematous appearing lungs. copyright 2010 [employer]- All Rights Reserved Assessment & Plan - Diagnosis (1) Inguinal hernia Qualifiers: Obstruction and gangrene presence: without obstruction or gangrene Laterality: unilateral Recurrence: recurrent Qualified Code(s): K40.91 - Unilateral inguinal hernia, without obstruction or gangrene, recurrent Is this a current diagnosis for this admission?: Yes Plan: Impression: Symptomatic, transiently incarcerated right inguinal, now reduced; desires repair. Recommendations: 1. We will admit to surgical service, keep n.p.o. on IV fluids and plan for open right inguinal hernia later today; I explained to the patient he will be operated on by the surgicalist of the day. 2. Patient is a former smoker; his chest x-ray shows bilateral chronic emphysematous changes; of hypertension, controlled with 2 medications. His EKG is essentially unremarkable. He is considered mild to moderate risk for cardio event. (2) Former smoker Is this a current diagnosis for this admission?: Yes - Time Time Spent: 50 to 70 Minutes Critical Time spent with patient: 15-24 minutes Medications reviewed and adjusted accordingly: Yes Anticipated discharge: Home - Inpatient Certification Based on my medical assessment, after consideration of the patient's comorbidities, presenting symptoms, or acuity I expect that the services needed warrant INPATIENT care.: Yes I certify that my determination is in accordance with my understanding of Medicare's requirements for reasonable and necessary INPATIENT services [42 CFR 412.3e].: Yes Medical Necessity: Need For IV Fluids, Need for Pain Control, Need for IV Antibiotics, Need for Surgery
[2018-04-17] MEDS ORDERED: BUPIVACAINE HCL 0.25 % INJ/PF (2.5 MG/1 ML) 30 ML VIAL ONE (08:27)
[2018-04-17] MEDS ORDERED: MIDAZOLAM 2 MG/2 ML INJ ONE (09:34)
[2018-04-17] MEDS ORDERED: PROPOFOL INJ 200 MG/20 ML VIAL IV ONE (09:34)
[2018-04-17] MEDS ORDERED: FENTANYL CITRATE INJ/PF 100 MCG/2 ML AMPUL ONE (09:34)
[2018-04-17] MEDS ORDERED: BUPIVACAINE HCL/DEX-WATER/PF 15 MG/2 ML AMPULE ONE (09:53)
[2018-04-17] MEDS ORDERED: DIPHENHYDRAMINE HCL 50 MG/ML VIAL IV PRN (10:28)
[2018-04-17] MEDS ORDERED: FENTANYL CITRATE INJ/PF 100 MCG/2 ML AMPUL IV PRN ×3 (10:28)
[2018-04-17] MEDS ORDERED: MORPHINE SULFATE 10 MG/ML INJ IV PRN (10:28)
[2018-04-17] MEDS ORDERED: MEPERIDINE HCL/PF INJ 25 MG/1 ML DISP.SYRIN IV PRN (10:28)
[2018-04-17] MEDS ORDERED: PROMETHAZINE HCL INJ 25 MG/1 ML VIAL IV PRN ×2 (10:28)
--- NOTE | 2018-04-17 11:21 | EKG REPORT ---
SEVERITY:- OTHERWISE NORMAL ECG - SINUS ARRHYTHMIA, RATE [id number] : Confirmed by: Radha Crockett 17-Apr-2018 11:21:02
--- NOTE | 2018-04-17 11:44 | PDOC PROGRESS REPORT ---
Subjective Progress Note for:: 04/17/18 Subjective:: Feels well. No complaints. No nausea vomiting no groin pain Reason For Visit: INCARCERATED RIGHT INGUINAL HERNIA Physical Exam Vital Signs: Temp Pulse Resp BP Pulse Ox 98.0 F 76 16 129/66 H 100 04/17/18 08:31 04/17/18 08:31 04/17/18 08:31 04/17/18 08:31 04/17/18 08:31 Intake & Output 04/16/18 04/17/18 04/18/18 06:59 06:59 06:59 Intake Total 0 Output Total 0 Balance 0 Weight 65.1 kg General appearance: PRESENT: no acute distress, cooperative Respiratory exam: PRESENT: clear to auscultation carly Cardiovascular exam: PRESENT: RRR GI/Abdominal exam: PRESENT: other - Soft, nondistended nontender to palpation. Right groin bulge with Valsalva spontaneously reduces. Gentrourinary exam: PRESENT: other - Bilateral testicles descended with no testicular masses and no scrotal masses. Results Impressions: Pelvis Ultrasound 04/16/18 20:06 IMPRESSION: There is a prominent loop of colon that shows peristalsis. This is in the suprapubic region. Is there concern for volvulus? Consider CT with contrast if clinically indicated. Chest X-Ray 04/17/18 01:49 IMPRESSION: Emphysematous appearing lungs. copyright 2011 [employer]- All Rights Reserved Assessment & Plan - Diagnosis (1) Inguinal hernia Qualifiers: Obstruction and gangrene presence: without obstruction or gangrene Laterality: unilateral Qualified Code(s): K40.91 - Unilateral inguinal hernia , without obstruction or gangrene, recurrent Is this a current diagnosis for this admission?: Yes Plan: Right-sided inguinal hernia that was incarcerated status post reduction in the ER. Patient doing well. I have had a long discussion with patient's concerning the risk and benefits of a right inguinal hernia repair which is highly recommended. I have discussed with him the risk of cardiopulmonary risks , infection, bleeding, adjacent structure injury, recurrence. Patient understands and agrees to proceed with right inguinal hernia repair with mesh.
--- NOTE | 2018-04-17 11:48 | Operative Report ---
Operative Report DATE OF SURGERY: 04/17/18 PREOPERATIVE DIAGNOSIS: Right inguinal hernia POSTOPERATIVE DIAGNOSIS: Right inguinal hernia OPERATION: Right inguinal hernia repair with mesh SURGEON: BERT HALL ANESTHESIA: Spinal TISSUE REMOVED OR ALTERED: Hernia sac COMPLICATIONS: None ESTIMATED BLOOD LOSS: Minimal INTRAOPERATIVE FINDINGS: Right indirect inguinal hernia. PROCEDURE: Informed consent was obtained. Patient was brought to the operating room placed on the operating room table in the supine position. After satisfactory induction of general anesthesia, patient's right groin was prepped and draped in usual sterile fashion. A transverse right groin incision was made. Dissection was carried down and the external oblique was opened along its fascial fibers thus opening the external inguinal ring. The cord was mobilized at the pubic tubercle. The ilioinguinal nerve was identified and preserved during the dissection. Dissection at the anterior aspect of the cord revealed an indirect inguinal hernia sac. The hernia sac was dissected to the level of the internal ring. It was opened. There were no incarcerated contents. High ligation of the sac was then performed at the level of the internal ring and the sac was excised. Mesh repair was performed with polypropylene mesh. The slit in the mesh allowed the egress of the cord structures. The sling ends were brought back together in a sling-like configuration thus re-creating the internal inguinal ring. The mesh laid flat with excellent coverage. The mesh was affixed using Prolene sutures. Hemostasis appeared excellent. Marcaine was injected. The external oblique was closed over the repair and the cord structures using running Vicryl suture. Luisa's fascia was closed with interrupted Vicryl sutures. Skin was closed with subcuticular running Monocryl suture. Patient tolerated procedure well with no apparent complications and was taken to the recovery area in stable condition.
[2018-04-17] MEDS: OXYCODONE-ACETAMINOPHEN 5-325 MG TABLET PO PRN ×2 (14:26→19:26)
--- NOTE | 2018-04-17 18:19 | PDOC PROGRESS REPORT ---
Subjective Progress Note for:: 04/17/18 Subjective:: Feels well. Some groin pain but manageable. No nausea or vomiting. Tolerating a diet well. Reason For Visit: INCARCERATED RIGHT INGUINAL HERNIA Physical Exam Vital Signs: Temp Pulse Resp BP Pulse Ox 97.4 F 63 18 119/66 100 04/17/18 17:53 04/17/18 17:53 04/17/18 17:53 04/17/18 17:53 04/17/18 17:53 Intake & Output 04/16/18 04/17/18 04/18/18 06:59 06:59 06:59 Intake Total 1480 Output Total 10 Balance 1470 Weight 65.1 kg General appearance: PRESENT: no acute distress, cooperative Respiratory exam: PRESENT: clear to auscultation carly Cardiovascular exam: PRESENT: RRR GI/Abdominal exam: PRESENT: soft - Nondistended, nontender to palpation other than mild tenderness at the right groin with wound clean dry and intact with no erythema. Results Impressions: Pelvis Ultrasound 04/16/18 20:06 IMPRESSION: There is a prominent loop of colon that shows peristalsis. This is in the suprapubic region. Is there concern for volvulus? Consider CT with contrast if clinically indicated. Chest X-Ray 04/17/18 01:49 IMPRESSION: Emphysematous appearing lungs. copyright 2011 [employer]- All Rights Reserved Assessment & Plan - Diagnosis (1) Inguinal hernia Qualifiers: Obstruction and gangrene presence: without obstruction or gangrene Laterality: unilateral Qualified Code(s): K40.91 - Unilateral inguinal hernia , without obstruction or gangrene, recurrent Is this a current diagnosis for this admission?: Yes Plan: Status post repair. Patient looks good tolerating a diet well. Patient does not wish to go home yet. Will observe overnight.
[2018-04-18] MEDS: OXYCODONE-ACETAMINOPHEN 5-325 MG TABLET PO PRN ×3 (03:52→18:47)
--- NOTE | 2018-04-18 09:52 | PDOC PROGRESS REPORT ---
Subjective Progress Note for:: 04/18/18 Reason For Visit: INCARCERATED RIGHT INGUINAL HERNIA Physical Exam Vital Signs: Temp Pulse Resp BP Pulse Ox 98.0 F 63 16 112/64 100 04/18/18 07:59 04/18/18 07:59 04/18/18 07:59 04/18/18 07:59 04/18/18 07:59 Intake & Output 04/17/18 04/18/18 04/19/18 06:59 06:59 06:59 Intake Total 1480 Output Total 10 Balance 1470 Weight 65.1 kg 64 kg Results Impressions: Pelvis Ultrasound 04/16/18 20:06 IMPRESSION: There is a prominent loop of colon that shows peristalsis. This is in the suprapubic region. Is there concern for volvulus? Consider CT with contrast if clinically indicated. Chest X-Ray 04/17/18 01:49 IMPRESSION: Emphysematous appearing lungs. copyright 2010 [employer]- All Rights Reserved Assessment & Plan - Diagnosis (1) Inguinal hernia Qualifiers: Obstruction and gangrene presence: without obstruction or gangrene Laterality: unilateral Qualified Code(s): K40.91 - Unilateral inguinal hernia , without obstruction or gangrene, recurrent Is this a current diagnosis for this admission?: Yes - Plan Summary Plan Summary: This is an 82-year-old male status post repair of an incarcerated right inguinal hernia. The patient is doing well today. His pain is controlled, he is tolerating a diet, and he is ambulating with assistance. The patient reports that he cannot leave the hospital today due to the fact that he does not have a ride. Continue ambulation. Discharge planning.
--- NOTE | 2018-04-19 09:35 | PDOC PROGRESS REPORT ---
Subjective Progress Note for:: 04/19/18 Subjective:: Feels well. No problems. Tolerating diet well. Reason For Visit: INCARCERATED RIGHT INGUINAL HERNIA Physical Exam Vital Signs: Temp Pulse Resp BP Pulse Ox 98.0 F 68 18 118/60 98 04/19/18 04:00 04/19/18 04:00 04/19/18 04:00 04/19/18 04:00 04/19/18 04:00 Intake & Output 04/18/18 04/19/18 04/20/18 06:59 06:59 06:59 Intake Total 1480 1960 Output Total 10 Balance 1470 1960 Weight 64 kg 63.9 kg General appearance: PRESENT: no acute distress, cooperative Respiratory exam: PRESENT: clear to auscultation carly Cardiovascular exam: PRESENT: RRR GI/Abdominal exam: PRESENT: other - Soft, nondistended, nontender to palpation. Wound clean dry and intact. Minimal swelling. Results Impressions: Pelvis Ultrasound 04/16/18 20:06 IMPRESSION: There is a prominent loop of colon that shows peristalsis. This is in the suprapubic region. Is there concern for volvulus? Consider CT with contrast if clinically indicated. Chest X-Ray 04/17/18 01:49 IMPRESSION: Emphysematous appearing lungs. copyright 2011 [employer]- All Rights Reserved Assessment & Plan - Diagnosis (1) Inguinal hernia Qualifiers: Obstruction and gangrene presence: without obstruction or gangrene Laterality: unilateral Qualified Code(s): K40.91 - Unilateral inguinal hernia , without obstruction or gangrene, recurrent Is this a current diagnosis for this admission?: Yes Plan: Status post repair. Patient looks good tolerating a diet well. Doing well. No evidence of bowel obstruction. Will discharge patient home.
--- NOTE | 2018-04-19 09:57 | DISCHARGE SUMMARY E ---
Discharge Summary NAME: ARNEL GOINS : 1935 AGE: 82Y ADMITTED: 04/17/2018 DISCHARGED: 04/19/2018 DISCHARGE DIAGNOSIS: Incarcerated right inguinal hernia with resultant bowel obstruction. PROCEDURES PERFORMED DURING HOSPITALIZATION: 1. Right inguinal hernia reduction performed in the emergency department. 2. Right inguinal hernia repair with mesh performed by Dr. Cathy Hall on 04/17/2018. HOSPITAL COURSE: The patient had the hernia reduced. He was subsequently admitted and he underwent right inguinal hernia repair with mesh. He did well postoperatively. He was observed in the hospital to make sure he did not have any residual symptoms; that is, he came in with nausea and vomiting with symptoms of obstruction due to the hernia. All of these symptoms completely resolved. The patient was tolerating a diet well at the time of discharge. He was feeling quite well, ambulating well. The patient has now been discharged to home in good condition. He will follow up with [facility] in 2 weeks. He was encouraged to stay active but avoid strenuous activity. He may shower. He may follow a regular diet. DICTATING PHYSICIAN: CATHY HALL M.D. [id number] PHY#: [id number] ID: [id number] JOB#: [id number] ACCT: [id number] cc:CATHY HALL M.D. [facility],
[2018-04-19 12:09] VITALS: BP 132/75
== END 2018-04-19 12:32 | disposition home or self-care (01) ==
LOC: ER 18:27 → EH 04-17 01:55 → 2N 04-17 03:58
PROVIDERS: ATTEND Surgery
PROC: 0YU50JZ Supplement Right Inguinal Region with Synthetic Substitute, Open Approach (ICD-10-PCS; principal; 2018-04-17 09:00)
DX: K40.31 Unilateral inguinal hernia, with obstruction, without gangrene, recurrent (principal); Z87.891 Personal history of nicotine dependence
CPT/HCPCS: 93005; 99285; 96360; 36415 ×2; 83605; 85025; 85610; 85730; 80053; 81001; 88302 ×2; 71045; 76857; 93010; 49507; G0378 ×3; J2250; J0690; J3490; J3010; A9270 ×2; J7030; J2704; 830